=== PATIENT | female | born 1955 | race Caucasian/White ===

== ENCOUNTER 2016-09-22 20:23 | Emergency (ER) | payer BC ==
[2016-09-22] MEDS ORDERED: Sodium Chloride 0.9% 1000 ML 1,000 ML ONE (20:33)
[2016-09-22] MEDS ORDERED: Adenocard IV 6 MG/2 ML IV ONE ×2 (20:33→21:51)
[2016-09-22] MEDS ORDERED: Cardizem IV 50 MG/10 ML IV ONE (20:43)
[2016-09-22] MEDS ORDERED: BABY ASPIRIN 81 MG CHEW PO ONE (20:46)
[2016-09-22] MEDS ORDERED: CARDIZEM DRIP 100 MG/100 ML D5W 100 ML IV ONE (20:46)
[2016-09-22 20:51] LABS: BASOPHIL % 0.5 % (0.0-0.4); Eosinophil % 2.3 % (0.00-5.0); Granulocytes % 42.1 % (36.0-66.0); Lymphocytes % 46.1 % (24.0-44.0); Mean Cell Volume 85.4 fl (78-100); Mean Corpuscular Hemoglobin 29.2 pg (26-32); Mean Platelet Volume 11.6 fl (6-9.5); Platelet Count 221 K/mm3 (150-450); Red Blood Count 5.06 M/mm3 (4.1-5.4); Red Cell Distribution Width 13.1 % (11.5-14.0)
--- NOTE | 2016-09-22 20:54 | ERPHSYRPT ---
- History of Present Illness Time Seen by Provider: 09/22/16 20:48 Historian: patient Exam Limitations: no limitations Physician History: This is a 61-year-old white female with history of high blood pressure hyperlipidemia She arrives with complaint of feeling of fluttering in her chest associated with shortness of breath she denies any chest pain symptoms for one hour. Patient arrives with rapid heart rate she appears to be quite calm and does not appear to be in acute distress. She denies any nausea no vomiting she states she has not had a fever. Past medical history includes high blood pressure, hypercholesterolemia. Past surgery includes hysterectomy and . Social history he denies tobacco alcohol or illicit drug use. Timing/Duration: today (one hour prior to arrival) Activities at Onset: none Quality: other (feels a fluttering in her chest) Location: substernal Chest Pain Radiation: no radiation Severity of Pain-Max: mild Severity of Pain-Current: none Modifying Factors: Improves With: nothing. Worsens With: antacids, breathing, coughing, defecating, eating, exertion, lying down, morphine, movement, nitroglycerin, oxygen, palpation, rest, aspirin, sitting up, change in position Associated Symptoms: palpitations, shortness of breath, No nausea, No vomiting, No heartburn, No abdominal pain, No cough, No hurts to breathe, No diaphoresis, No chills, No fever, No fatigue, No weakness, No swelling/lump in chest, No syncope, No rash, No headache, No dizziness, No edema, No back pain Prior Chest Pain/Cardiac Workup: no prior chest pain Nitro Today/Relief: no nitro taken today Aspirin Treatment Today: 81 mg x 4, provided by ED Allergies/Adverse Reactions: No Known Drug Allergies Allergy (Unverified 09/22/16 20:34) - Review of Systems Constitutional: No Fever, No Chills Eyes: No Symptoms Ears, Nose, & Throat: No Symptoms Respiratory: Dyspnea, No Cough, No Cyanosis, No Dyspnea on Exertion (MILES), No Stridor, No Wheezing Cardiac: Palpitations, Other (fluttering in chest for one hour) Abdominal/Gastrointestinal: No Abdominal Pain, No Nausea, No Vomiting, No Diarrhea Genitourinary Symptoms: No Dysuria Musculoskeletal: No Back Pain, No Neck Pain Skin: No Rash Neurological: No Dizziness, No Focal Weakness, No Sensory Changes Psychological: No Symptoms Endocrine: No Symptoms All Other Systems: Reviewed and Negative - Past Medical History Cardiac History: High Cholesterol, Hypertension - Past Surgical History Female Surgical History: Hysterectomy, Section - Social History Smoking Status: Never smoker Alcohol Use: None Drug Use: none - Nursing Vital Signs Temperature: 98.2 F Temperature Source: Oral Pulse Rate: 153 Respiratory Rate: 16 Pain Intensity: 0 - Physical Exam General Appearance: no apparent distress, alert Eye Exam: PERRL/EOMI, eyes nml inspection Ears, Nose, Throat Exam: normal ENT inspection, moist mucous membranes Neck Exam: normal inspection, non-tender, supple, full range of motion Respiratory Exam: normal breath sounds, lungs clear, No respiratory distress Cardiovascular Exam: normal peripheral pulses, tachycardia, other (heart tachycardic, peripheral pulses intact) Gastrointestinal/Abdomen Exam: soft, No tenderness, No mass Back Exam: normal inspection, No CVA tenderness, No vertebral tenderness Extremity Exam: normal inspection, normal range of motion Neurologic Exam: alert (BS thank you), oriented x 3, cooperative, normal mood/ affect, sensation nml, No motor deficits Skin Exam: normal color, warm, dry SpO2 Interpretation: normal (98%) SpO2: 98 Oxygen Delivery: Nasal Cannula - Course Nursing assessment & vital signs reviewed: Yes EKG Interpreted by Me: RATE (157), A-fib, NORMAL AXIS, Other (EKG atrial fibrillation rapid ventricular rate [address] or T wave changes noted) - Radiology Exams Chest X-ray Interpretation: Interpreted by me (no acute disease process noted), Negative, No Pneumonia, No Pneumothorax Ordered Tests: Active Orders 24 hr Category Date Time Status Accounts Payable Clerk STAT Care 09/22/16 20:46 Active EKG-ER Only STAT Care 09/22/16 20:46 Active IV Insertion STAT Care 09/22/16 20:46 Active Oxygen-ED Only NASAL CANNULA 2 lpm Care 09/22/16 20:46 Active CHEST 1 VIEW (PORTABLE) Stat Exams 09/22/16 20:47 Taken CBC W DIFF Stat Lab 09/22/16 20:30 Completed CMP Stat Lab 09/22/16 20:30 Completed TROPONIN Q3H Lab 09/22/16 21:00 Completed TROPONIN Q3H Lab 09/23/16 00:00 Ordered TROPONIN Q3H Lab 09/23/16 03:00 Ordered TROPONIN Q3H Lab 09/23/16 06:00 Ordered TROPONIN Q3H Lab 09/23/16 09:00 Ordered Medication Summary Generic Name Dose Route Start Last Admin Trade Name Violette PRN Reason Stop Dose Admin Sodium Chloride 1,000 mls @ 100 mls/hr 09/22/16 21:00 09/22/16 21:10 Sodium Chloride 0.9% 1000 Ml IV 10/22/16 20:59 100 mls/hr .Q10H VIKA Administration Discontinued Medications Generic Name Dose Route Start Last Admin Trade Name Violette PRN Reason Stop Dose Admin Adenosine Confirm 09/22/16 20:33 Adenocard Iv 6 Mg/2 Ml Administered 09/22/16 20:34 Dose 6 mg IV .STK-MED ONE Adenosine Confirm 09/22/16 21:51 Adenocard Iv 6 Mg/2 Ml Administered 09/22/16 21:52 Dose 12 mg IV .STK-MED ONE Aspirin 324 mg 09/22/16 20:46 09/22/16 21:11 Baby Aspirin 81 Mg Chew PO 09/22/16 20:47 324 mg STAT ONE Administration Aspirin Confirm 09/22/16 21:10 Baby Aspirin 81 Mg Chew Administered 09/22/16 21:11 Dose 324 mg .ROUTE .STK-MED ONE Diltiazem HCl Confirm 09/22/16 20:43 Cardizem Iv 50 Mg/10 Ml Administered 09/22/16 20:44 Dose 50 mg IV .STK-MED ONE Sodium Chloride Confirm 09/22/16 20:33 Sodium Chloride 0.9% 1000 Ml Administered 09/22/16 20:34 Dose 1,000 mls @ ud .ROUTE .STK-MED ONE Diltiazem HCl Confirm 09/22/16 20:46 Cardizem Drip 100 Mg/100 Ml D5w Administered 09/22/16 20:47 Dose 100 mls @ ud IV .STK-MED ONE Lab/Rad Data: Laboratory Result Diagrams 09/22/16 20:30 09/22/16 20:30 Laboratory Results 09/22/16 09/22/16 09/22/16 Range/Units 21:00 20:30 20:30 WBC 8.0 (4.0-10.5) K/mm3 RBC 5.06 (4.1-5.4) M/mm3 Hgb 14.8 (12.0-16.0) gm/dl Hct 43.2 (35-47) % MCV 85.4 (78-100) fl MCH 29.2 (26-32) pg MCHC 34.3 (32-36) g/dl RDW 13.1 (11.5-14.0) % Plt Count 221 (150-450) K/mm3 MPV 11.6 H (6-9.5) fl Gran % 42.1 (36.0-66.0) % Lymphocytes % 46.1 H (24.0-44.0) % Monocytes % 9.0 (0.0-12.0) % Eosinophils % 2.3 (0.00-5.0) % Basophils % 0.5 (0.0-0.4) % Basophils # 0.04 (0-0.4) Sodium 140 (136-145) mEq/L Potassium 3.2 L (3.5-5.1) mEq/L Chloride 101 (98-107) mEq/L Carbon Dioxide 28.7 (21-32) mEq/L Anion Gap 13.5 (5-15) MEQ/L BUN 21 H (9-20) mg/dL Creatinine 0.99 (0.55-1.30) mg/dl Estimated GFR > 60 ML/MIN Glucose 143 H (70-110) MG/DL Calcium 9.9 (8.5-10.1) mg/dL Total Bilirubin 0.3 (0.2-1.0) mg/dL AST 27 (15-37) U/L ALT 29 (12-78) U/L Alkaline Phosphatase 76 (46-116) U/L Troponin I < 0.017 (0.000-0.056) ng/ml Serum Total Protein 8.3 H (6.4-8.2) gm/dL Albumin 4.6 (3.4-5.0) g/dL - Progress Progress: improved Air Movement: fair Progress Note: 09/22/16 20:53 This is a 61-year-old white female who arrives with complaint of fluttering in her chest symptoms for an hour associated with shortness of breath Patient on arrival is noted to have a heart rate of 1 57 bpm she does not appear to be in acute distress she has good peripheral pulses and perfusion his lungs are clear. Patient with a narrow tachycardia patient initially given adenosine 6 mg then 12 mg IV patient with a swelling of the heart rate with a positive approximately 4 seconds after 12 mg IV unfortunately patient returns to Tachycardia after administration of both boluses Therefore patient is given Cardizem 20 mg IV and started on a Cardizem drip patient will be given aspirin Patient's initial EKG supraventricular tachycardia 157 bpm normal axis no acute ST or T wave changes Patient's repeat EKG atrial fibrillation with rapid response 1 38 bpm normal axis no acute ST or T wave changes are noted. I have discussed patient's case will await troponin will administer Cardizem drip and bolus and titrated Cardizem for rate Will plan on discussion with [facility] one call for possible transfer as appropriate. 09/22/16 22:10 Patient's heartbeat is improving on Cardizem drip with Cardizem boluses. Heart rate now around 100-110 blood pressure was stable. Patient's EKG no acute changes troponin within normal limits. Case discussed with Marnie Dougherty who is second cutter for Dr. Gonzalez At [facility] patient will be accepted for transfer to [facility] Dr. Gonzalez as attending - Departure Time of Disposition: 22:12 Departure Disposition: Home, Transfer ([facility], Dr Gonzalez) Clinical Impression: Atrial fibrillation with rapid ventricular response, New onset atrial fibrillation, Palpitations Condition: Fair Critical Care Time: Yes Critical Care Time(excluding separately billable procedures): 30-74 minutes Referrals: MELVI ALFONSO [Primary Care Provider] -
[2016-09-22] MEDS ORDERED: Sodium Chloride 0.9% 1000 ML 1,000 ML IV SCH (21:00)
[2016-09-22] MEDS ORDERED: BABY ASPIRIN 81 MG CHEW ONE (21:10)
[2016-09-22 21:17] LABS: ALBUMIN 4.6 g/dL (3.4-5.0); ALKALINE PHOSPHATASE 76 U/L (46-116); ANION GAP 13.5 MEQ/L (5-15); BILIRUBIN,TOTAL 0.3 mg/dL (0.2-1.0); BLOOD UREA NITROGEN 21 mg/dL (9-20); CHLORIDE 101 mEq/L (98-107); Carbon Dioxide 28.7 mEq/L (21-32); Glucose 143 MG/DL (70-110); Potassium 3.2 mEq/L (3.5-5.1); SGOT/AST 27 U/L (15-37); SGPT/ALT 29 U/L (12-78); SODIUM 140 mEq/L (136-145); Total Protein 8.3 gm/dL (6.4-8.2)
[2016-09-22 22:13] VITALS: O2SAT 98
[2016-09-22 23:09] VITALS: BP 101/50; PULSE 101
--- NOTE | 2016-09-23 08:36 | XRAY ---
Indication: Tachycardia and short of breath. Comparison: None Portable apical lordotic chest slightly under inflated and clear. Heart and mediastinal structures still within normal limits. Bony thorax intact with mild degenerative changes. Impression: Nonacute underinflated chest.
== END 2016-09-22 23:25 | disposition short-term general hospital (02) ==
LOC: ED 20:23
DX: I48.91 Unspecified atrial fibrillation (principal); R00.0 Tachycardia, unspecified; R00.2 Palpitations; I10 Essential (primary) hypertension; E78.5 Hyperlipidemia, unspecified
CPT/HCPCS: 36000; 36415; 71010; 80053; 84484; 85025; 93005; 93041; 96360; 96361; 96365; 96366; 99284; 99285; 99291; J0153

== ENCOUNTER 2018-10-21 08:40 | Emergency (ER) | payer BC ==
[2018-10-21 09:16] LABS: BASOPHIL % 0.2 % (0.0-0.4); Basophil (Absolute #) 0.02 (0-0.4); Eosinophil % 0.2 % (0.00-5.0); Eosinophil (Absolute #) 0.02 (0-0.5); Granulocyte Absolute (ANC) 8.28 (1.4-6.9); Granulocytes % 83.2 % (36.0-66.0); Hematocrit 39.4 % (35-47); Hemoglobin 13.5 gm/dl (12.0-16.0); Lymphocyte (Absolute #) 0.97 (1.0-4.6); Lymphocytes % 9.7 % (24.0-44.0); Mean Cell Volume 87.2 fl (78-100); Mean Corpuscular Hemoglobin 29.9 pg (26-32); Mean Corpuscular Hgb Concent. 34.3 g/dl (32-36); Mean Platelet Volume 10.5 fl (6-9.5); Monocyte (Absolute #) 0.67 (0.0-1.3); Monocytes % 6.7 % (0.0-12.0); Platelet Count 199 K/mm3 (150-450); Red Blood Count 4.52 M/mm3 (4.1-5.4); Red Cell Distribution Width 13.2 % (11.5-14.0)
--- NOTE | 2018-10-21 09:23 | ERPHSYRPT ---
- History of Present Illness Source: patient Exam Limitations: no limitations Patient Subjective Stated Complaint: pt here for runny nose for a couple days and sore throat today, with a low grade fever Triage Nursing Assessment: pt alert, walked in. resp easy, skin w/d/p. no cough , pt took niquil last night Physician History: Pt is a 63 y/o female with past medical history of HTN. She states, has a few days of cough, with yellow-green discharge, and rhinorrhea with same color of discharge. She denies SOB. No F/C/S. No chest discomfort. Some sore throat. No N/V/D or abdominal pain. Timing/Duration: day(s) Cough Quality/Degree: moderate, productive cough, sputum (yellow-green) Possible Cause: no prior episodes Modifying Factors: Improves With: nothing Associated Symptoms: cough, sore throat Allergies/Adverse Reactions: No Known Drug Allergies Allergy (Verified 10/21/18 08:50) Home Medications: Amlodipine Besylate 5 mg [Norvasc 5 mg] 5 mg PO DAILY 09/22/16 [History] Ascorbic Acid [Vitamin C] 1,000 mg PO DAILY 09/22/16 [History] Aspirin 81 mg PO DAILY 09/22/16 [History] Calcium Citrate/Vitamin D3 [Citracal + D Caplet] 1 each PO DAILY 09/22/16 [ History] Fenofibrate Nanocrystallized [Tricor] 48 mg PO DAILY 09/22/16 [History] Niacin 500 mg PO TID 09/22/16 [History] Arrey-3/Dha/Epa/Fish Oil [Arrey 3 500 Softgel] 1 each PO DAILY 09/22/16 [History ] Pravastatin Sodium 40 mg PO DAILY 09/22/16 [History] Triamterene/Hydrochlorothiazid [Triamterene-Hctz 37.5-25 mg Tb] 1 each PO DAILY 09/22/16 [History] Ubidecarenone [Co Q-10] 75 mg PO DAILY 09/22/16 [History] Hx Tetanus, Diphtheria Vaccination/Date Given: Yes Hx Influenza Vaccination/Date Given: Yes Hx Pneumococcal Vaccination/Date Given: No Immunizations Up to Date: Yes - Review of Systems Constitutional: No Fever, No Chills Eyes: No Symptoms Ears, Nose, & Throat: Nose Discharge (yellow-green), Throat Pain Respiratory: No Cough, No Dyspnea Cardiac: No Chest Pain, No Edema, No Syncope Abdominal/Gastrointestinal: No Abdominal Pain, No Nausea, No Vomiting, No Diarrhea Musculoskeletal: No Back Pain, No Neck Pain Neurological: No Dizziness, No Focal Weakness, No Sensory Changes - Past Medical History Pertinent Past Medical History: Yes Cardiac History: High Cholesterol, Hypertension - Past Surgical History Past Surgical History: Yes Female Surgical History: Hysterectomy, Section Other Surgical History: hand surgery - Social History Smoking Status: Never smoker Exposure to second hand smoke: No Alcohol Use: None Drug Use: none Patient Lives Alone: No - Female History Hx Last Menstrual Period: post Hx Now: No - Nursing Vital Signs Nursing Vital Signs: Initial Vital Signs Temperature 98.9 F 10/21/18 08:46 Pulse Rate 87 10/21/18 08:46 Respiratory Rate 16 10/21/18 08:46 Blood Pressure 134/75 10/21/18 08:46 O2 Sat by Pulse Oximetry 97 10/21/18 08:46 Pain Scale Pain Intensity 0 - Physical Exam General Appearance: no apparent distress, alert Eye Exam: PERRL/EOMI, eyes nml inspection Ears, Nose, Throat Exam: normal ENT inspection, TMs normal, pharynx normal, moist mucous membranes Neck Exam: non-tender, lymphadenopathy (sub mandibular) Respiratory Exam: normal breath sounds, lungs clear, No respiratory distress Cardiovascular Exam: regular rate/rhythm, normal heart sounds Gastrointestinal/Abdomen Exam: soft, No tenderness Extremity Exam: normal inspection, normal range of motion Neurologic Exam: alert, oriented x 3, cooperative, normal mood/affect, sensation nml, No motor deficits SpO2: 97 - Course Nursing assessment & vital signs reviewed: Yes Ordered Tests: Active Orders 24 hr Category Date Time Status CBC W DIFF Stat Lab 10/21/18 09:14 Completed CMP Stat Lab 10/21/18 09:14 Completed Lab/Rad Data: Laboratory Result Diagrams 10/21/18 09:14 10/21/18 09:14 Laboratory Results 10/21/18 10/21/18 10/21/18 Range/Units 09:14 09:14 09:14 WBC 10.0 (4.0-10.5) K/mm3 RBC 4.52 (4.1-5.4) M/mm3 Hgb 13.5 (12.0-16.0) gm/dl Hct 39.4 (35-47) % MCV 87.2 (78-100) fl MCH 29.9 (26-32) pg MCHC 34.3 (32-36) g/dl RDW 13.2 (11.5-14.0) % Plt Count 199 (150-450) K/mm3 MPV 10.5 H (6-9.5) fl Gran % 83.2 H (36.0-66.0) % Eos # (Auto) 0.02 (0-0.5) Absolute Lymphs (auto) 0.97 L (1.0-4.6) Absolute Monos (auto) 0.67 (0.0-1.3) Lymphocytes % 9.7 L (24.0-44.0) % Monocytes % 6.7 (0.0-12.0) % Eosinophils % 0.2 (0.00-5.0) % Basophils % 0.2 (0.0-0.4) % Absolute Granulocytes 8.28 H (1.4-6.9) Basophils # 0.02 (0-0.4) Sodium 137 (137-145) mmol/L Potassium 3.3 L (3.5-5.1) mmol/L Chloride 95 L (98-107) mmol/L Carbon Dioxide 31 H (22-30) mmol/L Anion Gap 13.2 (5-15) MEQ/L BUN 18 H (7-17) mg/dL Creatinine 0.70 (0.52-1.04) mg/dL Estimated GFR > 60.0 ML/MIN Glucose 182 H (74-106) mg/dL Calcium 9.5 (8.4-10.2) mg/dL Total Bilirubin 0.90 (0.2-1.3) mg/dL AST 40 H (14-36) U/L ALT 50 H (0-35) U/L Alkaline Phosphatase 89 (38-126) U/L Serum Total Protein 7.9 (6.3-8.2) g/dL Albumin 4.7 (3.5-5.0) g/dL Influenza Type A Ag NEGATIVE (NEGATIVE) Influenza Type B Ag NEGATIVE (NEGATIVE) RSV (PCR) NEGATIVE (Negative) Group A Strep Antibody POSITIVE (NEGATIVE) - Progress Progress: unchanged Air Movement: good Progress Note: 10/21/18 09:23 Pt had lab work done, as well as strep swab and respiratory panel. Pt did have positive Strep swab. No leukocytosis. I will prescribe Amoxicillin for ten days. Pt should f/u with PCP next week. 10/21/18 09:55 Blood Culture(s) Obtained: No Antibiotics given: No Counseled pt/family regarding: need for follow-up, rad results - Departure Time of Disposition: 09:56 Departure Disposition: Home Clinical Impression: Strep pharyngitis Condition: Stable Critical Care Time: No Referrals: MELVI ALFONSO [Primary Care Provider] - Additional Instructions: Finish ABX as ordered. F/U with PCP next week. Prescriptions: Amoxicillin [Amoxil] 875 mg PO BID 10 Days #20 tablet
[2018-10-21 09:28] LABS: ALBUMIN 4.7 g/dL (3.5-5.0); ALKALINE PHOSPHATASE 89 U/L (38-126); ANION GAP 13.2 MEQ/L (5-15); BLOOD UREA NITROGEN 18 mg/dL (7-17); CHLORIDE 95 mmol/L (98-107); Calcium 9.5 mg/dL (8.4-10.2); Carbon Dioxide 31 mmol/L (22-30); Glucose 182 mg/dL (74-106); Potassium 3.3 mmol/L (3.5-5.1); SGOT/AST 40 U/L (14-36); SGPT/ALT 50 U/L (0-35); SODIUM 137 mmol/L (137-145); Total Protein 7.9 g/dL (6.3-8.2)
[2018-10-21 09:40] LABS: Group A Strep POSITIVE (NEGATIVE)
[2018-10-21 09:49] LABS: INFLUENZA A NEGATIVE (NEGATIVE); INFLUENZA B NEGATIVE (NEGATIVE); RESPIRATORY SYNCTIAL VIRUS NEGATIVE (Negative)
[2018-10-21 10:08] VITALS: BP 109/70; PULSE 100; O2SAT 96
== END 2018-10-21 10:09 | disposition home or self-care (01) ==
LOC: ED 08:40
DX: J02.0 Streptococcal pharyngitis (principal); I10 Essential (primary) hypertension; Z79.899 Other long term (current) drug therapy
CPT/HCPCS: 36415; 80053; 85025; 87631; 87651; 99283

== ENCOUNTER 2019-12-15 16:53 | Emergency (ER) | payer BC ==
[2019-12-15] MEDS ORDERED: Adacel Vial IM ONE ×2 (17:15→17:16)
[2019-12-15] MEDS ORDERED: BACIGUENT PACKET TP ONE (17:15)
[2019-12-15] MEDS ORDERED: BACIGUENT PACKET ONE (17:16)
--- NOTE | 2019-12-15 17:22 | ERPHSYRPT ---
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, approx 2 cm laceration above the top knuckle Triage Nursing Assessment: Pt brought to the ER by her , 2 cm laceration to her left middle finger, bleeding has stopped, denies pain, vitals wnl, pulses normal, doesn't appear to be in any distress Physician History: [employer] vs L 3rd digit Occurred: just prior to arrival Method of Injury: incised (Electric [employer] vs L 3rd digit) Extremities Pain Location: 3rd finger: left Modifying Factors: Improves With: nothing Associated Symptoms: none Allergies/Adverse Reactions: No Known Drug Allergies Allergy (Verified 12/15/19 17:05) Home Medications: Amlodipine Besylate 5 mg [Norvasc 5 mg] 5 mg PO DAILY 09/22/16 [History] Ascorbic Acid [Vitamin C] 1,000 mg PO DAILY 09/22/16 [History] Aspirin 81 mg PO DAILY 09/22/16 [History] Calcium Citrate/Vitamin D3 [Citracal + D Caplet] 1 each PO DAILY 09/22/16 [ History] Fenofibrate Nanocrystallized [Tricor] 48 mg PO DAILY 09/22/16 [History] Niacin 500 mg PO BID 09/22/16 [History] Pravastatin Sodium 40 mg PO DAILY 09/22/16 [History] Ubidecarenone [Co Q-10] 100 mg PO DAILY 09/22/16 [History] Chlorthalidone 25 mg PO DAILY 12/15/19 [History] carvediloL [Carvedilol] 12.5 mg PO BID 12/15/19 [History] Hx Tetanus, Diphtheria Vaccination/Date Given: Yes Hx Influenza Vaccination/Date Given: Yes Hx Pneumococcal Vaccination/Date Given: No Travel Risk - International Travel Have you traveled outside of the country in past 3 weeks: No Have you or anyone close to you been diagnosed with or: No Do your reside in a community with a known COVID-19 case?: Yes If Yes where:: [place] - Coronavirus Screening Has patient experienced Coronavirus symptoms: No - Review of Systems Constitutional: No Fever, No Chills Eyes: No Symptoms Ears, Nose, & Throat: No Symptoms Respiratory: No Cough, No Dyspnea Cardiac: No Chest Pain, No Edema, No Syncope Abdominal/Gastrointestinal: No Abdominal Pain, No Nausea, No Vomiting, No Diarrhea Genitourinary Symptoms: No Dysuria Musculoskeletal: No Back Pain, No Neck Pain Skin: No Rash Neurological: No Dizziness, No Focal Weakness, No Sensory Changes Psychological: No Symptoms Endocrine: No Symptoms All Other Systems: Reviewed and Negative - Past Medical History Pertinent Past Medical History: Yes Neurological History: No Pertinent History ENT History: No Pertinent History Cardiac History: High Cholesterol, Hypertension Respiratory History: No Pertinent History Endocrine Medical History: No Pertinent History GI Medical History: No Pertinent History History: No Pertinent History Psycho-Social History: No Pertinent History Female Reproductive Disorders: No Pertinent History - Past Surgical History Past Surgical History: Yes Neuro Surgical History: No Pertinent History Cardiac: No Pertinent History Respiratory: No Pertinent History Gastrointestinal: No Pertinent History Female Surgical History: Hysterectomy, Section Other Surgical History: hand surgery - Social History Smoking Status: Never smoker Exposure to second hand smoke: No Alcohol Use: None Drug Use: none Patient Lives Alone: No Significant Family History: no pertinent family hx - Female History Hx Now: No - Nursing Vital Signs Nursing Vital Signs: Initial Vital Signs Temperature 98.1 F 12/15/19 16:57 Pulse Rate 72 12/15/19 16:57 Blood Pressure 143/95 12/15/19 16:57 O2 Sat by Pulse Oximetry 98 12/15/19 16:57 Pain Scale Pain Intensity 0 - Physical Exam General Appearance: no apparent distress Eyes, Ears, Nose, Throat Exam: normal ENT inspection Neck Exam: normal inspection Cardiovascular/Respiratory Exam: chest non-tender, normal breath sounds, regular rate/rhythm Abdominal Exam: non-tender Back Exam: normal inspection Shoulder Exam: normal inspection Elbow/Forearm Exam: normal inspection Wrist Exam: normal inspection Hand Exam: laceration (L dist al 3rd digit 1cm lac/good distal sensation and capillary return) Neuro/Tendon Exam: normal sensation, normal motor functions, normal tendon functions, responds to pain Mental Status Exam: alert, oriented x 3, cooperative Skin Exam: normal color, warm, dry SpO2 Interpretation: normal SpO2: 98 O2 Delivery: Room Air Procedures - Laceration/Wound Repair Left Distal Finger Wound Location: Left (distal 3rd digit) Wound Length (cm): 1 Wound's Depth, Shape: superficial Wound Explored: clean Irrigated: No Hibiclens Prep: Yes Anesthesia: digital block (1% lido wo epi) Wound Repaired With: sutures Suture Size/Type: 4-0 Number of Sutures: 4 Layer Closure?: No Sterile Dressing Applied?: Yes Splint Applied?: No Sling Applied?: No - Course Nursing assessment & vital signs reviewed: Yes Ordered Tests: Medication Summary Discontinued Medications Generic Name Dose Route Start Last Admin Trade Name Freq PRN Reason Stop Dose Admin Bacitracin Zinc 0.9 gm 12/15/19 17:15 Baciguent Packet TP 12/15/19 17:16 STAT ONE Diphtheria/Tetanus/Acell Pertussis 0.5 ml 12/15/19 17:15 Adacel Vial IM 12/15/19 17:16 .ONCE ONE - Progress Progress: improved Progress Note: 12/15/19 17:25 Tdap given in ER - Departure Departure Disposition: Home Clinical Impression: Finger laceration Condition: Stable Critical Care Time: No Referrals: MELVI ALFONSO [Primary Care Provider] - Instructions: Laceration Repair With Stitches (DC) Additional Instructions: Sutures out in 10 days Keep dry for 48 hours, then wash 1-2 times a day with soap/water Watch for signs of infection-redness/pain/pus/temperature greater than 100.5
[2019-12-15 17:31] VITALS: BP 141/74; PULSE 68; O2SAT 96
== END 2019-12-15 17:35 | disposition home or self-care (01) ==
LOC: ED 16:53
DX: S61.213A Laceration without foreign body of left middle finger without damage to nail, initial encounter (principal); W45.8XXA Other foreign body or object entering through skin, initial encounter; Y92.9 Unspecified place or not applicable; Y99.9 Unspecified external cause status
CPT/HCPCS: 12001; 90471; 90715; 99283; A9270-GY

== ENCOUNTER 2021-11-24 01:47 | Emergency (ER) | payer MEDICARE, OTHER ==
[2021-11-24] MEDS ORDERED: Adenocard IV 6 MG/2 ML IV ONE (02:10)
[2021-11-24] MEDS ORDERED: CARDIZEM DRIP 100 MG/100 ML D5W 100 ML IV ONE (02:14)
[2021-11-24] MEDS ORDERED: Sodium Chloride 0.9% 1000 ML 1,000 ML ONE (02:14)
[2021-11-24] MEDS ORDERED: BABY ASPIRIN 81 MG CHEW PO ONE (02:15)
[2021-11-24] MEDS ORDERED: Sodium Chloride 0.9% 1000 ML 1,000 ML IV SCH (02:15)
[2021-11-24] MEDS ORDERED: Cardizem IV 50 MG/10 ML IV ONE (02:17)
[2021-11-24] MEDS ORDERED: CARDIZEM DRIP 100 MG/100 ML D5W 100 ML IV PRN (02:17)
--- NOTE | 2021-11-24 02:21 | ERPHSYRPT ---
- History of Present Illness Time Seen by Provider: 11/24/21 02:15 Historian: patient Exam Limitations: no limitations Physician History: 66 years old female with history of hypertension, hyperlipidemia, paroxysmal atrial fibrillation not anticoagulated presented to the ER with sudden onset palpitations waking her up from sleep around 1 AM. Continuous without any sign ificant aggravating or relieving factors, feel dizzy and lightheaded without any chest pain/shortness of breath. Denies fever or chills. Timing/Duration: hour(s) (1), sudden Activities at Onset: sleep Severity of Pain-Max: none Severity of Pain-Current: none Associated Symptoms: palpitations Prior Chest Pain/Cardiac Workup: no prior chest pain Nitro Today/Relief: no nitro taken today Aspirin Treatment Today: 81 mg x 1 Allergies/Adverse Reactions: adhesive tape Allergy (Mild, Verified 11/24/21 02:23) Rash Home Medications: Amlodipine Besylate 5 mg [Norvasc 5 mg] 5 mg PO QHS 09/22/16 [History] Ascorbic Acid [Vitamin C] 1,000 mg PO BID 09/22/16 [History] Aspirin 81 mg PO QHS 09/22/16 [History] Calcium Citrate/Vitamin D3 [Citracal + D Caplet] 1 tab PO DAILY 09/22/16 [History] Niacin 500 mg PO BID 09/22/16 [History] Pravastatin Sodium 40 mg PO QHS 09/22/16 [History] Ubidecarenone [Co Q-10] 100 mg PO DAILY 09/22/16 [History] Chlorthalidone 12.5 mg PO QHS 12/15/19 [History] carvediloL [Carvedilol] 12.5 mg PO QAM 12/15/19 [History] Carvedilol [Coreg] 25 mg PO QHS 11/24/21 [History] Cyanocobalamin (Vitamin B-12) [Vitamin B-12] 1,000 mcg PO DAILY 11/24/21 [History] Krill/Om3/Dha/Epa/Om6/Lip/Astx [Krill Oil 1,500 mg Softgel] 1,500 mg PO BID 11/24/21 [History] Multivit-Min/FA/Lycopen/Lutein [Centrum Silver Tablet] 1 tab PO DAILY 11/24/21 [History] Potassium Chloride [K-Tab ER] 10 meq PO BID 11/24/21 [History] Hx Tetanus, Diphtheria Vaccination/Date Given: Yes Hx Influenza Vaccination/Date Given: Yes Hx Pneumococcal Vaccination/Date Given: No - Review of Systems Constitutional: No Symptoms Eyes: No Symptoms Ears, Nose, & Throat: No Symptoms Respiratory: No Symptoms Cardiac: Palpitations Abdominal/Gastrointestinal: No Symptoms Genitourinary Symptoms: No Symptoms Musculoskeletal: No Symptoms Skin: No Symptoms Neurological: Dizziness Psychological: No Symptoms Endocrine: No Symptoms Hematologic/Lymphatic: No Symptoms Immunological/Allergic: No Symptoms - Past Medical History Pertinent Past Medical History: Yes Neurological History: No Pertinent History ENT History: No Pertinent History Cardiac History: High Cholesterol, Hypertension Respiratory History: No Pertinent History Endocrine Medical History: No Pertinent History GI Medical History: No Pertinent History History: No Pertinent History Psycho-Social History: No Pertinent History Female Reproductive Disorders: No Pertinent History - Past Surgical History Past Surgical History: Yes Neuro Surgical History: No Pertinent History Cardiac: No Pertinent History Respiratory: No Pertinent History Gastrointestinal: No Pertinent History Female Surgical History: Hysterectomy, Section Other Surgical History: hand surgery - Social History Smoking Status: Never smoker Exposure to second hand smoke: No Alcohol Use: None Drug Use: none Patient Lives Alone: No Significant Family History: no pertinent family hx - Nursing Vital Signs Nursing Vital Signs: Initial Vital Signs Temperature 98.9 F 11/24/21 01:58 Pulse Rate 149 H 11/24/21 01:58 Respiratory Rate 20 11/24/21 01:58 Blood Pressure 140/95 11/24/21 01:58 O2 Sat by Pulse Oximetry 96 11/24/21 01:58 Pain Scale Pain Intensity 0 - Physical Exam General Appearance: no apparent distress, alert Eye Exam: PERRL/EOMI, eyes nml inspection Ears, Nose, Throat Exam: normal ENT inspection, pharynx normal Neck Exam: normal inspection, supple, full range of motion Respiratory Exam: normal breath sounds, lungs clear Cardiovascular Exam: tachycardia, irregular Gastrointestinal/Abdomen Exam: soft, normal bowel sounds, No tenderness Back Exam: normal inspection, normal range of motion Extremity Exam: normal inspection, normal range of motion Neurologic Exam: alert, oriented x 3, cooperative Skin Exam: normal color SpO2 Interpretation: normal SpO2: 96 O2 Delivery: Room Air - Course EKG Interpreted by Me: RATE (138), A-fib, NORMAL AXIS, NORMAL INTERVALS, Non- specific ST Changes, Other (LVH, second EKG time 5:53 AM. Rate 60 rhythm sinus, PVCs, LVH. T wave inversion diffuse leads, no ST elevation) Ordered Tests: Active Orders 24 hr Category Date Time Status Go Go Dancer STAT Care 11/24/21 02:16 Active EKG-ER Only STAT Care 11/24/21 02:15 Active IV Insertion STAT Care 11/24/21 02:15 Active Oxygen-ED Only Nasal Cannula 2 lpm Care 11/24/21 02:15 Active CHEST 1 VIEW (PORTABLE) Stat Exams 11/24/21 02:16 Taken CBC W DIFF Stat Lab 11/24/21 02:28 Completed CMP Stat Lab 11/24/21 02:28 Completed NT PRO BNP Stat Lab 11/24/21 02:28 Completed PROTIME WITH INR Stat Lab 11/24/21 02:28 Completed PTT Stat Lab 11/24/21 02:28 Completed TROPONIN Q3H Lab 11/24/21 02:28 Completed TROPONIN Q3H Lab 11/24/21 05:22 Received TROPONIN Q3H Lab 11/24/21 08:30 Ordered TROPONIN Q3H Lab 11/24/21 11:30 Ordered TROPONIN Q3H Lab 11/24/21 14:30 Ordered Medication Summary Generic Name Dose Route Start Last Admin Trade Name Freq PRN Reason Stop Dose Admin Sodium Chloride 1,000 mls @ 100 mls/hr 11/24/21 02:15 11/24/21 02:54 Sodium Chloride 0.9% 1000 Ml IV 12/24/21 02:14 100 mls/hr .Q10H VIKA Administration Diltiazem HCl 100 mls @ 5 mls/hr 11/24/21 02:17 11/24/21 05:24 Cardizem Drip 100 Mg/100 Ml D5w IV 12/24/21 02:16 0 mg/hr .Q20H PRN 0 mls/hr HEART RATE/ A-FIB Titration Protocol 5 MG/HR Discontinued Medications Generic Name Dose Route Start Last Admin Trade Name Freq PRN Reason Stop Dose Admin Adenosine Confirm 11/24/21 02:10 Adenosine 6 Mg/2 Ml Vial Administered 11/24/21 02:11 Dose 6 mg IV .STK-MED ONE Aspirin 243 mg 11/24/21 02:15 11/24/21 02:51 Aspirin 81 Mg Tab.Chew PO 11/24/21 02:16 243 mg STAT ONE Administration Diltiazem HCl 10 mg 11/24/21 02:17 11/24/21 02:30 Diltiazem Hcl Iv 5 Mg/Ml Vial IV 11/24/21 02:18 10 mg STAT ONE Administration Sodium Chloride Confirm 11/24/21 02:14 Sodium Chloride 0.9% 1000 Ml Administered 11/24/21 02:15 Dose 1,000 mls @ ud .ROUTE .STK-MED ONE Diltiazem HCl Confirm 11/24/21 02:14 Cardizem Drip 100 Mg/100 Ml D5w Administered 11/24/21 02:15 Dose 100 mls @ ud IV .STK-MED ONE Lab/Rad Data: Laboratory Result Diagrams 11/24/21 02:28 11/24/21 02:28 Laboratory Results 11/24/21 11/24/21 11/24/21 Range/Units 02:28 02:28 02:28 WBC (4.0-10.5) K/mm3 RBC (4.1-5.4) M/mm3 Hgb (12.0-16.0) gm/dl Hct (35-47) % MCV (78-100) fl MCH (26-32) pg MCHC (32-36) g/dl RDW (11.5-14.0) % Plt Count (150-450) K/mm3 MPV (7.5-11.0) fl Gran % (36.0-66.0) % Eos # (Auto) (0-0.5) Absolute Lymphs (auto) (1.0-4.6) Absolute Monos (auto) (0.0-1.3) Lymphocytes % (24.0-44.0) % Monocytes % (0.0-12.0) % Eosinophils % (0.00-5.0) % Basophils % (0.0-0.4) % Absolute Granulocytes (1.4-6.9) Basophils # (0-0.4) PT 10.3 (9.4-12.5) SECONDS INR 0.87 (0.8-3.0) APTT 32.2 (25.1-36.5) SECONDS Sodium 139 (137-145) mmol/L Potassium 3.6 (3.5-5.1) mmol/L Chloride 101 (98-107) mmol/L Carbon Dioxide 28 (22-30) mmol/L Anion Gap 14.0 (5-15) MEQ/L BUN 16 (7-17) mg/dL Creatinine 0.62 (0.52-1.04) mg/dL Estimated GFR > 60.0 ML/MIN Glucose 129 H (74-106) mg/dL Calcium 9.7 (8.4-10.2) mg/dL Total Bilirubin 0.60 (0.2-1.3) mg/dL AST 34 (14-36) U/L ALT 29 (0-35) U/L Alkaline Phosphatase 75 (38-126) U/L Troponin I < 0.012 (0.000-0.034) ng/mL NT-Pro-B Natriuret Pep 47.8 (0-900) pg/mL Serum Total Protein 7.0 (6.3-8.2) g/dL Albumin 4.5 (3.5-5.0) g/dL 11/24/21 Range/Units 02:28 WBC 5.7 (4.0-10.5) K/mm3 RBC 5.12 (4.1-5.4) M/mm3 Hgb 15.2 (12.0-16.0) gm/dl Hct 44.6 (35-47) % MCV 87.1 (78-100) fl MCH 29.7 (26-32) pg MCHC 34.1 (32-36) g/dl RDW 13.3 (11.5-14.0) % Plt Count 198 (150-450) K/mm3 MPV 11.5 H (7.5-11.0) fl Gran % 47.9 (36.0-66.0) % Eos # (Auto) 0.15 (0-0.5) Absolute Lymphs (auto) 2.17 (1.0-4.6) Absolute Monos (auto) 0.63 (0.0-1.3) Lymphocytes % 38.0 (24.0-44.0) % Monocytes % 11.0 (0.0-12.0) % Eosinophils % 2.6 (0.00-5.0) % Basophils % 0.5 (0.0-0.4) % Absolute Granulocytes 2.73 (1.4-6.9) Basophils # 0.03 (0-0.4) PT (9.4-12.5) SECONDS INR (0.8-3.0) APTT (25.1-36.5) SECONDS Sodium (137-145) mmol/L Potassium (3.5-5.1) mmol/L Chloride (98-107) mmol/L Carbon Dioxide (22-30) mmol/L Anion Gap (5-15) MEQ/L BUN (7-17) mg/dL Creatinine (0.52-1.04) mg/dL Estimated GFR ML/MIN Glucose (74-106) mg/dL Calcium (8.4-10.2) mg/dL Total Bilirubin (0.2-1.3) mg/dL AST (14-36) U/L ALT (0-35) U/L Alkaline Phosphatase (38-126) U/L Troponin I (0.000-0.034) ng/mL NT-Pro-B Natriuret Pep (0-900) pg/mL Serum Total Protein (6.3-8.2) g/dL Albumin (3.5-5.0) g/dL - Progress Progress: improved Air Movement: good Progress Note: 11/24/21 05:59 66 years old is evaluated for palpitations. Patient was in A. fib with RVR, sta rted on Cardizem drip and patient converted to normal sinus with rate in 60s and 50s. Does not have any chest pain. Chest x-ray did not show any acute infiltrative process. Negative troponins. Grossly unremarkable chemistries. Patient is feeling back to her baseline. She is offered observation admission but she wants to go home and will follow up with her diagnostic tech. She is off of Cardizem drip for almost an hour and maintain normal sinus rhythm. Discussed with patient about signs symptoms of worsening needing return to ER which she seems understanding. Stable for discharge. Blood Culture(s) Obtained: No Antibiotics given: No Counseled pt/family regarding: lab results, diagnosis, need for follow-up, jacquie charles - Departure Departure Disposition: Home Clinical Impression: Atrial fibrillation with rapid ventricular response Condition: Stable Critical Care Time: Yes Critical Care Time(excluding separately billable procedures): Critical 30-74 mins Referrals: MELVI ALFONSO [Primary Care Provider] - Follow up/PCP as directed (1-2 days for reevaluation) HELENA LERNER MD [CONSULTING PHYSICIAN] - Follow up/PCP as directed (Call today for reevaluation in the next couple of days.) Instructions: Palpitations (DC), Atrial Fibrillation (DC) Additional Instructions: Continue with your current medications. Follow-up with your diagnostic tech for reevaluation. Return to ER if again having palpitations tightness, pressure/pain/difficulty breathing etc.
[2021-11-24 02:32] LABS: Absolute Neutrophil Ct (ANC) 2.73 (1.4-6.9); Basophil (Absolute #) 0.03 (0-0.4); Eosinophil % 2.6 % (0.00-5.0); Eosinophil (Absolute #) 0.15 (0-0.5); Hematocrit 44.6 % (35-47); Hemoglobin 15.2 gm/dl (12.0-16.0); Lymphocyte (Absolute #) 2.17 (1.0-4.6); Mean Cell Volume 87.1 fl (78-100); Mean Corpuscular Hemoglobin 29.7 pg (26-32); Mean Corpuscular Hgb Concent. 34.1 g/dl (32-36); Mean Platelet Volume 11.5 fl (7.5-11.0); Monocyte (Absolute #) 0.63 (0.0-1.3); Neutrophil % 47.9 % (36.0-66.0); Platelet Count 198 K/mm3 (150-450); Red Blood Count 5.12 M/mm3 (4.1-5.4); Red Cell Distribution Width 13.3 % (11.5-14.0); White Blood Count 5.7 K/mm3 (4.0-10.5)
[2021-11-24 02:44] LABS: INR 0.87 (0.8-3.0); PROTIME 10.3 SECONDS (9.4-12.5)
[2021-11-24 02:46] LABS: PTT 32.2 SECONDS (25.1-36.5)
[2021-11-24 02:56] LABS: ALBUMIN 4.5 g/dL (3.5-5.0); ALKALINE PHOSPHATASE 75 U/L (38-126); BLOOD UREA NITROGEN 16 mg/dL (7-17); CHLORIDE 101 mmol/L (98-107); Calcium 9.7 mg/dL (8.4-10.2); Carbon Dioxide 28 mmol/L (22-30); Creatinine 1 0.62 mg/dL (0.52-1.04); EST GLOMERULAR FILTRATION RATE > 60.0 ML/MIN; Glucose 129 mg/dL (74-106); NT PRO BNP 47.8 pg/mL (0-900); Potassium 3.6 mmol/L (3.5-5.1); SGOT/AST 34 U/L (14-36); SGPT/ALT 29 U/L (0-35); SODIUM 139 mmol/L (137-145)
[2021-11-24 06:01] LABS: INFLUENZA A NEGATIVE (NEGATIVE); INFLUENZA B NEGATIVE (NEGATIVE); RESPIRATORY SYNCTIAL VIRUS NEGATIVE (Negative); SARS-CoV-2 Xpert Express NEGATIVE (NEGATIVE)
[2021-11-24 06:28] VITALS: BP 115/72; PULSE 60; O2SAT 97
--- NOTE | 2021-11-24 09:01 | XRAY ---
Indication: Palpitations. Comparison: September 22, 2016. Portable apical lordotic chest remains clear. Heart not enlarged. Bony thorax intact again with mild degenerative changes. No new/acute findings. Comment: Preliminary interpretation made by [facility]. No critical discrepancy.
== END 2021-11-24 06:43 | disposition home or self-care (01) ==
LOC: ED 01:47
DX: I48.20 Chronic atrial fibrillation, unspecified (principal); I10 Essential (primary) hypertension; E78.5 Hyperlipidemia, unspecified; Z79.899 Other long term (current) drug therapy
CPT/HCPCS: 0241U; 36000; 36415; 71045; 80053; 83880; 84484; 85025; 85610; 85730; 93005; 93041; 96365; 96366; 96374; 99285; 99291; J0153; A9270-GY

== ENCOUNTER 2022-09-09 12:27 | Emergency (ER) | payer MEDICARE, OTHER ==
--- NOTE | 2022-09-09 12:53 | ERPHSYRPT ---
- History of Present Illness Time Seen by Provider: 09/09/22 12:40 Source: patient Exam Limitations: no limitations Patient Subjective Stated Complaint: C/O irregular heart rate that started around 0900 today Triage Nursing Assessment: Patient ambulated back to ER without any difficulties. No SOB. Denies pain. Alert and oriented. BASHIR WNL. No edema noted. Skin tone normal. Physician History: Patient is a 67-year-old female with history of A. fib presents to our ED for a brief episode of heart palpitations. Palpitations were not associated with pain or near syncope. Patient called her wool hanker Dr. Charlie Prieto who advised her to take an additional dose of metoprolol. However patient took it upon herself to come to our ED for evaluation. Upon arrival she is asymptomatic. No chest pain no shortness of breath no nausea vomiting or diaphoresis. Patient has no complaints other than she wants to be checked out for this brief episode of heart palpitations. Patient takes an aspirin daily. Otherwise not on blood thinners. Patient's episode of heart palpitations occurred at approximately 9 AM this morning. Repeat episodes have not occurred. Portions of this note were created with voice recognition technology. There may be grammatical, spelling, punctuation or sound alike errors Timing/Duration: today Severity: mild Modifying Factors: Improves With: nothing Associated Symptoms: denies symptoms Allergies/Adverse Reactions: adhesive tape Allergy (Mild, Verified 09/09/22 12:33) Rash Home Medications: Amlodipine Besylate 5 mg [Norvasc 5 mg] 5 mg PO QHS 09/22/16 [History] Aspirin 81 mg PO QHS 09/22/16 [History] Ascorbic Acid 500 mg [Vitamin C 500 MG] 1,000 mg PO BID 09/09/22 [History] Calcium Carb,Cit/D3/Phytostrol [Citracal-D3 Plus Heart [facility] Tb] 1 tab PO DAILY 09/09/22 [History] Chlorthalidone 12.5 mg PO DAILY 09/09/22 [History] Cholecalciferol (Vitamin D3) [Vitamin D3] 1 cap PO DAILY 09/09/22 [History] Cyanocobalamin (Vitamin B-12) [Vitamin B12] 1,000 mg PO DAILY 09/09/22 [History] Krill/Om-3/Dha/Epa/Phospho/Ast [Krill Oil 1,000 mg Softgel] 1,085 mg PO BID 09/09/22 [History] Metoprolol Tartrate [Lopressor] 1 tab PO BID 09/09/22 [History] Multivit-Min/Iron/Folic/Lutein [Centrum Silver Women Tablet] 1 tab PO DAILY [History] Niacin (Inositol Niacinate) [Niacin 500 mg Capsule] 1 cap PO BID 09/09/22 [History] Ubidecarenone [Co Q-10] 1 tab PO DAILY 09/09/22 [History] Hx Tetanus, Diphtheria Vaccination/Date Given: Yes Hx Influenza Vaccination/Date Given: Yes Hx Pneumococcal Vaccination/Date Given: Yes Immunizations Up to Date: Yes Travel Risk - International Travel Have you traveled outside of the country in past 3 weeks: No - Coronavirus Screening Are you exhibiting any of the following symptoms?: No Close contact with a COVID-19 positive Pt in past 14-21 Days: No - Vaccine Status Have you recieved a Covid-19 vaccination: No - Review of Systems Constitutional: No Symptoms, No Fever, No Chills Eyes: No Symptoms Ears, Nose, & Throat: No Symptoms Respiratory: No Symptoms, No Cough, No Dyspnea Cardiac: No Symptoms, No Chest Pain, No Edema, No Syncope Abdominal/Gastrointestinal: No Symptoms, No Abdominal Pain, No Nausea, No Vomiting, No Diarrhea Genitourinary Symptoms: No Symptoms, No Dysuria Musculoskeletal: No Symptoms, No Back Pain, No Neck Pain Skin: No Symptoms, No Rash Neurological: No Symptoms, No Dizziness, No Focal Weakness, No Sensory Changes Psychological: No Symptoms Endocrine: No Symptoms Hematologic/Lymphatic: No Symptoms Immunological/Allergic: No Symptoms All Other Systems: Reviewed and Negative - Past Medical History Pertinent Past Medical History: Yes Neurological History: No Pertinent History ENT History: No Pertinent History Cardiac History: High Cholesterol, Hypertension, Other Respiratory History: No Pertinent History Endocrine Medical History: No Pertinent History Musculoskeletal History: No Pertinent History GI Medical History: No Pertinent History History: No Pertinent History Psycho-Social History: No Pertinent History Female Reproductive Disorders: No Pertinent History Other Medical History: skin cancer, history of a-fib episodes (wool hanker: Dr. Tali Prieto) - Past Surgical History Past Surgical History: Yes Neuro Surgical History: No Pertinent History Cardiac: Cardiac Catheterization Respiratory: No Pertinent History Gastrointestinal: No Pertinent History Female Surgical History: Hysterectomy, Section Other Surgical History: hand surgery, cyst removal from fingers - Social History Smoking Status: Never smoker Exposure to second hand smoke: No Alcohol Use: None Drug Use: none Patient Lives Alone: No () Significant Family History: no pertinent family hx - Nursing Vital Signs Nursing Vital Signs: Initial Vital Signs Temperature 98.8 F 09/09/22 12:34 Pulse Rate 65 09/09/22 12:34 Respiratory Rate 24 09/09/22 12:34 Blood Pressure 134/64 09/09/22 12:34 O2 Sat by Pulse Oximetry 98 09/09/22 12:34 Pain Scale Pain Intensity 0 - Physical Exam General Appearance: no apparent distress, alert Eye Exam: PERRL/EOMI, eyes nml inspection Ears, Nose, Throat Exam: normal ENT inspection, TMs normal, pharynx normal, moist mucous membranes Neck Exam: normal inspection, non-tender, supple, full range of motion Respiratory Exam: normal breath sounds, lungs clear, No respiratory distress Cardiovascular Exam: regular rate/rhythm, normal heart sounds, normal peripheral pulses Gastrointestinal/Abdomen Exam: soft, normal bowel sounds, No tenderness, No mass Back Exam: normal inspection, normal range of motion, No CVA tenderness, No vertebral tenderness Extremity Exam: normal inspection, normal range of motion, pelvis stable Neurologic Exam: alert, oriented x 3, cooperative, normal mood/affect, nml cerebellar function, nml station & gait, sensation nml, No motor deficits Skin Exam: normal color, warm, dry, No rash Lymphatic Exam: No adenopathy SpO2 Interpretation: normal SpO2: 98 O2 Delivery: Room Air - Course Nursing assessment & vital signs reviewed: Yes EKG Interpreted by Me: RATE (64), Sinus Rhythm (EKG similar to EKG performed on November 24, 2021), NORMAL AXIS, NORMAL INTERVALS Ordered Tests: Active Orders 24 hr Category Date Time Status Claims Supervisor STAT Care 09/09/22 12:49 Completed EKG-ER Only STAT Care 09/09/22 12:47 Completed IV Insertion STAT Care 09/09/22 12:47 Completed Pulse Oximetry (ED) STAT Care 09/09/22 12:47 Completed CBC W DIFF Stat Lab 09/09/22 12:45 Completed CMP Stat Lab 09/09/22 12:45 Completed NT PRO BNP Stat Lab 09/09/22 12:45 Completed PROTIME WITH INR Stat Lab 09/09/22 Completed PTT Stat Lab 09/09/22 Completed TROPONIN Q4H Lab 09/09/22 12:45 Completed TROPONIN Q4H Lab 09/09/22 16:50 Completed Medication Summary Discontinued Medications Generic Name Dose Route Start Last Admin Trade Name Freq PRN Reason Stop Dose Admin Aspirin 324 mg 09/09/22 17:43 09/09/22 18:13 Aspirin 81 Mg Tab.Chew PO 09/09/22 17:44 324 mg STAT ONE Administration Heparin Sodium (Beef Lung) Confirm 09/09/22 18:07 Heparin 5000 Units/0.5 Ml 5,000 Unit/0.5 Ml Syr Administered 09/09/22 18:08 Dose 5,000 unit .ROUTE .STK-MED ONE Heparin Sodium (Beef Lung) 5,000 unit 09/09/22 18:08 09/09/22 18:12 Heparin 5000 Units/0.5 Ml 5,000 Unit/0.5 Ml Syr IV 09/09/22 18:09 5,000 unit STAT ONE Administration Nitroglycerin/Dextrose 250 mls @ 1.5 mls/hr 09/09/22 17:45 Ntg 0.2mg/Ml In D5w Glass IV 10/09/22 17:44 .Q24H PRN CHEST PAIN Protocol 5 MCG/MIN Heparin Sodium/Dextrose Confirm 09/09/22 18:07 Heparin 25,000 Units/D5w: Use Order Set Deena Administered 09/09/22 18:08 Dose 25,000 units in 250 mls @ ud IV .STK-MED ONE Heparin Sodium/Dextrose 25,000 units in 250 mls @ 10 mls/hr 09/09/22 18:30 09/09/22 18:13 Heparin 25,000 Units/D5w: Use Order Set Deena IV 10/09/22 18:29 1,000 units/hr .Q24H VIKA 10 mls/hr Administration Protocol 1,000 UNITS/HR Lab/Rad Data: Laboratory Result Diagrams 09/09/22 12:45 09/09/22 12:45 Laboratory Results 09/09/22 09/09/22 09/09/22 Range/Units Unknown 16:50 12:45 WBC (4.0-10.5) x10^3/uL RBC (4.1-5.4) x10^6/uL Hgb (12.0-16.0) g/dL Hct (35-47) % MCV (78-100) fL MCH (26-32) pg MCHC (32-36) g/dL RDW (11.5-14.0) % Plt Count (150-450) x10^3/uL MPV (7.5-11.0) fL Gran % (36.0-66.0) % Immature Gran % (Auto) (0.00-0.4) % Nucleat RBC Rel Count (0.00-0.1) % Eos # (Auto) (0-0.5) x10^3/uL Immature Gran # (Auto) (0.00-0.03) x10^3u/L Absolute Lymphs (auto) (1.0-4.6) x10^3/uL Absolute Monos (auto) (0.0-1.3) x10^3/uL Absolute Nucleated RBC (0.00-0.01) x10^3u/L Lymphocytes % (24.0-44.0) % Monocytes % (0.0-12.0) % Eosinophils % (0.00-5.0) % Basophils % (0.0-0.4) % Absolute Granulocytes (1.4-6.9) x10^3/uL Basophils # (0-0.4) x10^3/uL PT 10.2 (9.4-12.5) SECONDS INR 0.96 (0.8-3.0) APTT 26.0 (25.1-36.5) SECONDS Sodium (137-145) mmol/L Potassium (3.5-5.1) mmol/L Chloride (98-107) mmol/L Carbon Dioxide (22-30) mmol/L Anion Gap (5-15) MEQ/L BUN (7-17) mg/dL Creatinine (0.52-1.04) mg/dL Estimated GFR ML/MIN Glucose (74-106) mg/dL Calcium (8.4-10.2) mg/dL Total Bilirubin (0.2-1.3) mg/dL AST (14-36) U/L ALT (0-35) U/L Alkaline Phosphatase (38-126) U/L Troponin I 0.069 H* 0.024 (0.000-0.034) ng/mL NT-Pro-B Natriuret Pep (0-900) pg/mL Serum Total Protein (6.3-8.2) g/dL Albumin (3.5-5.0) g/dL 09/09/22 09/09/22 Range/Units 12:45 12:45 WBC 6.8 (4.0-10.5) x10^3/uL RBC 5.47 H (4.1-5.4) x10^6/uL Hgb 15.9 (12.0-16.0) g/dL Hct 47.7 H (35-47) % MCV 87.2 (78-100) fL MCH 29.1 (26-32) pg MCHC 33.3 (32-36) g/dL RDW 12.3 (11.5-14.0) % Plt Count 200 (150-450) x10^3/uL MPV 11.2 H (7.5-11.0) fL Gran % 65.9 (36.0-66.0) % Immature Gran % (Auto) 0.1 (0.00-0.4) % Nucleat RBC Rel Count 0.0 (0.00-0.1) % Eos # (Auto) 0.08 (0-0.5) x10^3/uL Immature Gran # (Auto) 0.01 (0.00-0.03) x10^3u/L Absolute Lymphs (auto) 1.67 (1.0-4.6) x10^3/uL Absolute Monos (auto) 0.50 (0.0-1.3) x10^3/uL Absolute Nucleated RBC 0.00 (0.00-0.01) x10^3u/L Lymphocytes % 24.5 (24.0-44.0) % Monocytes % 7.3 (0.0-12.0) % Eosinophils % 1.2 (0.00-5.0) % Basophils % 1.0 (0.0-0.4) % Absolute Granulocytes 4.48 (1.4-6.9) x10^3/uL Basophils # 0.07 (0-0.4) x10^3/uL PT (9.4-12.5) SECONDS INR (0.8-3.0) APTT (25.1-36.5) SECONDS Sodium 138 (137-145) mmol/L Potassium 3.9 (3.5-5.1) mmol/L Chloride 101 (98-107) mmol/L Carbon Dioxide 30 (22-30) mmol/L Anion Gap 11.3 (5-15) MEQ/L BUN 11 (7-17) mg/dL Creatinine 0.59 (0.52-1.04) mg/dL Estimated GFR > 60.0 ML/MIN Glucose 153 H (74-106) mg/dL Calcium 9.6 (8.4-10.2) mg/dL Total Bilirubin 0.70 (0.2-1.3) mg/dL AST 46 H (14-36) U/L ALT 40 H (0-35) U/L Alkaline Phosphatase 76 (38-126) U/L Troponin I (0.000-0.034) ng/mL NT-Pro-B Natriuret Pep 117 (0-900) pg/mL Serum Total Protein 7.8 (6.3-8.2) g/dL Albumin 4.8 (3.5-5.0) g/dL - Progress Progress: improved Progress Note: Patient is a 67-year-old female presents to our ED for evaluation of a single episode of heart palpitations without any other symptomology. Physical exam nonremarkable. Patient's complaint was acute. History of A. fib may have contributed to the patient's brief episode of heart palpitation. Complexity of patient's complaint was moderate. Test ordered include CBC CMP BNP and troponin. This was troponin was 0.024. Repeat troponin was 0.069. Results of work-up were used for medical decision making. Patient currently on aspirin daily. EKG shows sinus rhythm. No A. fib. In light of increasing troponin Heparin drip was ordered. We added coags on the patient's laboratory work-up. Nitro was initiated. However it was discontinued per Dr. Lemon request. We contacted [facility]. Case discussed with ER physician Dr. Reynolds and Dr. Lemon who accept transfer. Plan of care discussed with patient. She agreed to transfer to [facility] for further evaluation and treatment. Level of EM service provided was high. Complexity of problem addressed was moderate. Amount and complexity of data reviewed and analyzed is moderate. Risks of complication and/or risk of morbidity/mortality of patient management was minimal No critical care time patient serves as an independent historian. Patient remained asymptomatic throughout her stay in our ED. diagnosis is NSTEMI, elevated cardiac troponin Taken troponin was elevated. Case discussed with Dr. Lemon who advised holding off on nitro drip until patient develops chest pain. Dr. Lemon accepts patient to [facility]. We will transfer patient to [facility] for further evaluation and treatment. Plan of care discussed with patient. She agrees to transfer to [facility]. Portions of this note were created with voice recognition technology. There may be grammatical, spelling, punctuation or sound alike errors 09/09/22 18:06 09/09/22 23:00 09/09/22 23:01 Counseled pt/family regarding: lab results, diagnosis, need for follow-up - Departure Departure Disposition: Transfer Clinical Impression: Heart palpitations, NSTEMI (non-ST elevated myocardial infarction), Elevated cardiac troponin Condition: Stable Critical Care Time: No Referrals: MELVI ALFONSO [Primary Care Provider] - Follow up/PCP as directed Additional Instructions: Discharge/Care Plan IGNACIO CARPIO was seen on 09/09/22 in the Emergency Room. The patient was c ounseled regarding Diagnosis,Lab results, Imaging studies, need for follow up and when to return to the Emergency Room. Prescriptions given: Discharge Note I have spoken with the patient and/or caregivers. I have explained the patient's condition, diagnosis and treatment plan based on the information available to me at this time. I have answered the patient's and/or caregiver's questions and addressed any concerns. The patient and/or caregivers have as good understanding of the patient's diagnosis, condition and treatment plan as can be expected at this point. The vital signs have been stable. The patient's condition is stable and appropriate for discharge from the emergency department. The patient will pursue further outpatient evaluation with the primary care physician or other designated or consulting physician as outlined in the discharge instructions. The patient and/or caregivers are agreeable to this plan of care and follow-up instructions have been explained in detail. The patient and/or caregivers have received these instruction. The patient/and or caregivers are aware that any significant change in condition or worsening of symptoms should prompt an immediate return to this or the closest emergency department or call 911.
[2022-09-09 13:11] LABS: Absolute Neutrophil Ct (ANC) 4.48 x10^3/uL (1.4-6.9); Basophil (Absolute #) 0.07 x10^3/uL (0-0.4); Eosinophil % 1.2 % (0.00-5.0); Eosinophil (Absolute #) 0.08 x10^3/uL (0-0.5); Hematocrit 47.7 % (35-47); Hemoglobin 15.9 g/dL (12.0-16.0); IMMATURE GRAN # 0.01 x10^3u/L (0.00-0.03); IMMATURE GRAN % 0.1 % (0.00-0.4); Lymphocyte (Absolute #) 1.67 x10^3/uL (1.0-4.6); Lymphocytes % 24.5 % (24.0-44.0); Mean Cell Volume 87.2 fL (78-100); Mean Corpuscular Hemoglobin 29.1 pg (26-32); Mean Corpuscular Hgb Concent. 33.3 g/dL (32-36); Mean Platelet Volume 11.2 fL (7.5-11.0); Monocytes % 7.3 % (0.0-12.0); Neutrophil % 65.9 % (36.0-66.0); Platelet Count 200 x10^3/uL (150-450); Red Blood Count 5.47 x10^6/uL (4.1-5.4); Red Cell Distribution Width 12.3 % (11.5-14.0); White Blood Count 6.8 x10^3/uL (4.0-10.5)
[2022-09-09 13:27] LABS: ALBUMIN 4.8 g/dL (3.5-5.0); ALKALINE PHOSPHATASE 76 U/L (38-126); ANION GAP 11.3 MEQ/L (5-15); BLOOD UREA NITROGEN 11 mg/dL (7-17); CHLORIDE 101 mmol/L (98-107); Calcium 9.6 mg/dL (8.4-10.2); Carbon Dioxide 30 mmol/L (22-30); Creatinine 1 0.59 mg/dL (0.52-1.04); EST GLOMERULAR FILTRATION RATE > 60.0 ML/MIN; Glucose 153 mg/dL (74-106); NT PRO BNP 117 pg/mL (0-900); Potassium 3.9 mmol/L (3.5-5.1); SGOT/AST 46 U/L (14-36); SGPT/ALT 40 U/L (0-35); SODIUM 138 mmol/L (137-145); Total Protein 7.8 g/dL (6.3-8.2)
[2022-09-09] MEDS ORDERED: BABY ASPIRIN 81 MG CHEW PO ONE (17:43)
[2022-09-09] MEDS ORDERED: Ntg 0.2MG/Ml in D5W GLASS*** 250 ML IV PRN (17:45)
[2022-09-09 17:58] LABS: INR 0.96 (0.8-3.0); PROTIME 10.2 SECONDS (9.4-12.5)
[2022-09-09 18:07] VITALS: O2SAT 98
[2022-09-09] MEDS ORDERED: HEPARIN 5000 UNITS/0.5 ML (HIGH RISK MED) ONE (18:07)
[2022-09-09] MEDS ORDERED: Heparin 25,000 units/D5W: USE ORDER SET PROTO 25,000 UNITS/250 ML BAG IV ONE (18:07)
[2022-09-09] MEDS ORDERED: HEPARIN 5000 UNITS/0.5 ML (HIGH RISK MED) IV ONE (18:08)
[2022-09-09 18:19] VITALS: BP 130/63; PULSE 72
[2022-09-09] MEDS ORDERED: Heparin 25,000 units/D5W: USE ORDER SET PROTO 25,000 UNITS/250 ML BAG IV SCH (18:30)
== END 2022-09-09 18:28 | disposition short-term general hospital (02) ==
LOC: ED 12:27
DX: I21.4 Non-ST elevation (NSTEMI) myocardial infarction (principal); R77.8 Other specified abnormalities of plasma proteins; R00.2 Palpitations; E78.5 Hyperlipidemia, unspecified; I10 Essential (primary) hypertension; Z79.899 Other long term (current) drug therapy; Z28.310 Unvaccinated for COVID-19
CPT/HCPCS: 36000; 36415; 80053; 83880; 84484; 85025; 85610; 85730; 93005; 93041; 94760; 96374; 99285; J1644; A9270-GY

== ENCOUNTER 2022-12-02 05:15 | Emergency (ER) | payer MEDICARE, OTHER ==
--- NOTE | 2022-12-02 05:25 | ERPHSYRPT ---
- History of Present Illness Time Seen by Provider: 12/02/22 05:25 Source: patient Exam Limitations: no limitations Physician History: Patient presents w/ pounding chest palpitations w/ HR in the 130s that progressed to just a flutter after taking an extra 1/2 tablet of her Metoprolol Sxs started around 3am She has a hx of paroxysmal atrial fibrillation On chronic anticoagulation w/ Eliquis 5mg BID And rate control medication w/ Metoprolol Compliant. No side effects. Denies current palpitations, CP, SOB or swelling. 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 Hammad Lerner in [place] Timing/Duration: today (0300), resolved prior to arrival Activities at Onset: none Quality: other (palpitations) Chest Pain Radiation: no radiation Severity of Pain-Max: moderate Severity of Pain-Current: none Modifying Factors: Improves With: other (Metoprolol improved) Nitro Today/Relief: no nitro taken today Aspirin Treatment Today: no aspirin today Associated Symptoms: No nausea, No vomiting, No abdominal pain, No shortness of breath, No diaphoresis, No cough, No chest pain, No fever, No headaches Allergies/Adverse Reactions: adhesive tape Allergy (Mild, Verified 12/02/22 05:26) Rash Home Medications: Amlodipine Besylate 5 mg [Norvasc 5 mg] 5 mg PO QHS 09/22/16 [History] Ascorbic Acid 500 mg [Vitamin C 500 MG] 1,000 mg PO BID 09/09/22 [History] Calcium Carb,Cit/D3/Phytostrol [Citracal-D3 Plus [facility] Tb] 1 tab PO DAILY 09/09/22 [History] Chlorthalidone 12.5 mg PO DAILY 09/09/22 [History] Cholecalciferol (Vitamin D3) [Vitamin D3] 1 cap PO DAILY 09/09/22 [History] Cyanocobalamin (Vitamin B-12) [Vitamin B12] 1,000 mg PO DAILY 09/09/22 [History] Krill/Om-3/Dha/Epa/Phospho/Ast [Krill Oil 1,000 mg Softgel] 1,085 mg PO BID 09/09/22 [History] Metoprolol Tartrate [Lopressor] 100 tab PO BID 09/09/22 [History] Multivit-Min/Iron/Folic/Lutein [Centrum Silver Women Tablet] 1 tab PO DAILY 09/09/22 [History] Niacin (Inositol Niacinate) [Niacin 500 mg Capsule] 500 mg PO BID 09/09/22 [History] Ubidecarenone [Co Q-10] 1 tab PO DAILY 09/09/22 [History] Apixaban [Eliquis] 5 mg PO DAILY 12/02/22 [History] Pravastatin Sodium 40 mg PO DAILY 12/02/22 [History] Hx Tetanus, Diphtheria Vaccination/Date Given: Yes Hx Influenza Vaccination/Date Given: Yes Hx Pneumococcal Vaccination/Date Given: Yes Travel Risk - Vaccine Status Have you recieved a Covid-19 vaccination: No - Review of Systems Constitutional: No Symptoms Eyes: No Symptoms Ears, Nose, & Throat: No Symptoms Respiratory: No Symptoms Cardiac: Palpitations, No Chest Pain, No Edema, No Syncope, No Orthopnea, No PND Abdominal/Gastrointestinal: No Symptoms Genitourinary Symptoms: No Symptoms Musculoskeletal: No Symptoms Skin: No Symptoms Neurological: No Symptoms Psychological: No Symptoms Endocrine: No Symptoms Hematologic/Lymphatic: No Symptoms Immunological/Allergic: No Symptoms All Other Systems: Reviewed and Negative - Past Medical History Pertinent Past Medical History: Yes Neurological History: No Pertinent History ENT History: No Pertinent History Cardiac History: High Cholesterol, Hypertension, Other Respiratory History: No Pertinent History Endocrine Medical History: No Pertinent History Musculoskeletal History: No Pertinent History GI Medical History: No Pertinent History History: No Pertinent History Psycho-Social History: No Pertinent History Female Reproductive Disorders: No Pertinent History Other Medical History: skin cancer, history of a-fib 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) - Past Surgical History Past Surgical History: Yes Neuro Surgical History: No Pertinent History Cardiac: Cardiac Catheterization Respiratory: No Pertinent History Gastrointestinal: No Pertinent History Female Surgical History: Hysterectomy, Section Other Surgical History: hand surgery, cyst removal from fingers - Social History Smoking Status: Never smoker Exposure to second hand smoke: No Alcohol Use: None Drug Use: none Patient Lives Alone: No () Significant Family History: no pertinent family hx - Nursing Vital Signs Nursing Vital Signs: Initial Vital Signs Temperature 97.6 F 12/02/22 05:27 Pulse Rate 86 12/02/22 05:27 Respiratory Rate 24 12/02/22 05:27 Blood Pressure 110/74 12/02/22 05:27 O2 Sat by Pulse Oximetry 98 12/02/22 05:27 Pain Scale Pain Intensity 0 - Physical Exam General Appearance: no apparent distress Eye Exam: eyes nml inspection Ears, Nose, Throat Exam: normal ENT inspection Neck Exam: normal inspection, full range of motion Respiratory Exam: normal breath sounds, lungs clear, airway intact, No respiratory distress Cardiovascular Exam: regular rate/rhythm, normal heart sounds, capillary refill <2 sec, No edema Gastrointestinal/Abdomen Exam: soft, No tenderness Extremity Exam: normal range of motion Neurologic Exam: alert, oriented x 3, cooperative, normal mood/affect Skin Exam: normal color, warm, dry, No rash SpO2 Interpretation: normal O2 Delivery: Room Air - Course Nursing assessment & vital signs reviewed: Yes EKG Interpreted by Me: RATE (77), Sinus Rhythm, NORMAL AXIS, NORMAL INTERVALS, Other (T wave inversion in multiple inferior and lateral leads similar to EKG on 09/05/22) Ordered Tests: Active Orders 24 hr Category Date Time Status Database Design Analyst STAT Care 12/02/22 05:43 Active EKG-ER Only STAT Care 12/02/22 05:38 Active IV Insertion STAT Care 12/02/22 05:38 Active Pulse Oximetry (ED) STAT Care 12/02/22 05:38 Active CBC W DIFF Stat Lab 12/02/22 06:02 Completed CMP Stat Lab 12/02/22 06:02 Completed D-DIMER QUANTITATIVE Stat Lab 12/02/22 06:02 Completed MAGNESIUM Stat Lab 12/02/22 06:02 Completed TROPONIN Q4H Lab 12/02/22 06:02 Completed TROPONIN Q4H Lab 12/02/22 09:45 Ordered TROPONIN Q4H Lab 12/02/22 13:45 Ordered UA W/RFX UR CULTURE Stat Lab 12/02/22 06:02 Completed Medication Summary Discontinued Medications Generic Name Dose Route Start Last Admin Trade Name Freq PRN Reason Stop Dose Admin Aspirin 324 mg 12/02/22 05:38 12/02/22 05:50 Aspirin 81 Mg Tab.Chew PO 12/02/22 05:39 324 mg STAT ONE Administration Sodium Chloride 1,000 mls @ 999 mls/hr 12/02/22 05:38 12/02/22 05:51 Sodium Chloride 0.9% 1000 Ml IV 12/02/22 06:38 999 mls/hr .Q1H1M STA Administration Sodium Chloride Confirm 12/02/22 05:49 Sodium Chloride 0.9% 1000 Ml Administered 12/02/22 05:50 Dose 1,000 mls @ ud .ROUTE .[facility] Lab/Rad Data: Laboratory Result Diagrams 12/02/22 06:02 12/02/22 06:02 Laboratory Results 12/02/22 12/02/22 12/02/22 Range/Units 06:02 06:02 06:02 WBC (4.0-10.5) x10^3/uL RBC (4.1-5.4) x10^6/uL Hgb (12.0-16.0) g/dL Hct (35-47) % MCV (78-100) fL MCH (26-32) pg MCHC (32-36) g/dL RDW (11.5-14.0) % Plt Count (150-450) x10^3/uL MPV (7.5-11.0) fL Gran % (36.0-66.0) % Immature Gran % (Auto) (0.00-0.4) % Nucleat RBC Rel Count (0.00-0.1) % Eos # (Auto) (0-0.5) x10^3/uL Immature Gran # (Auto) (0.00-0.03) x10^3u/L Absolute Lymphs (auto) (1.0-4.6) x10^3/uL Absolute Monos (auto) (0.0-1.3) x10^3/uL Absolute Nucleated RBC (0.00-0.01) x10^3u/L Lymphocytes % (24.0-44.0) % Monocytes % (0.0-12.0) % Eosinophils % (0.00-5.0) % Basophils % (0.0-0.4) % Absolute Granulocytes (1.4-6.9) x10^3/uL Basophils # (0-0.4) x10^3/uL D-Dimer 0.41 (0.0-0.50) mg/L Sodium (137-145) mmol/L Potassium (3.5-5.1) mmol/L Chloride (98-107) mmol/L Carbon Dioxide (22-30) mmol/L Anion Gap (5-15) MEQ/L BUN (7-17) mg/dL Creatinine (0.52-1.04) mg/dL Estimated GFR ML/MIN Glucose (74-106) mg/dL Calcium (8.4-10.2) mg/dL Magnesium (1.6-2.3) mg/dL Total Bilirubin (0.2-1.3) mg/dL AST (14-36) U/L ALT (0-35) U/L Alkaline Phosphatase (38-126) U/L Troponin I < 0.012 (0.000-0.034) ng/mL Serum Total Protein (6.3-8.2) g/dL Albumin (3.5-5.0) g/dL Urine Color Yellow (Yellow) Urine Appearance Clear (Clear) Urine pH 7.5 (4.6-8.0) Ur Specific [place] 1.010 (1.005-1.030) Urine Protein Negative (Negative) Urine Glucose (UA) Negative (Negative) mg/dL Urine Ketones Negative (Negative) Urine Blood Negative (Negative) Urine Nitrite Negative (Negative) Urine Bilirubin Negative (Negative) Urine Urobilinogen 0.2 (0.2) mg/dL Ur Leukocyte Esterase Negative (Negative) U Hyaline Cast (Auto) NONE SEEN (0-2) /LPF Urine Microscopic RBC 0-2 (0-5) /HPF Urine Microscopic WBC 0-2 (0-5) /HPF Ur Epithelial Cells Rare (None Seen) /HPF Urine Bacteria None Seen (None Seen) /HPF Urine Culture Reflexed NO (NO) 12/02/22 12/02/22 Range/Units 06:02 06:02 WBC 4.6 (4.0-10.5) x10^3/uL RBC 5.26 (4.1-5.4) x10^6/uL Hgb 15.7 (12.0-16.0) g/dL Hct 46.3 (35-47) % MCV 88.0 (78-100) fL MCH 29.8 (26-32) pg MCHC 33.9 (32-36) g/dL RDW 12.6 (11.5-14.0) % Plt Count 199 (150-450) x10^3/uL MPV 11.0 (7.5-11.0) fL Gran % 51.7 (36.0-66.0) % Immature Gran % (Auto) 0.0 (0.00-0.4) % Nucleat RBC Rel Count 0.0 (0.00-0.1) % Eos # (Auto) 0.09 (0-0.5) x10^3/uL Immature Gran # (Auto) 0.00 (0.00-0.03) x10^3u/L Absolute Lymphs (auto) 1.69 (1.0-4.6) x10^3/uL Absolute Monos (auto) 0.40 (0.0-1.3) x10^3/uL Absolute Nucleated RBC 0.00 (0.00-0.01) x10^3u/L Lymphocytes % 36.5 (24.0-44.0) % Monocytes % 8.6 (0.0-12.0) % Eosinophils % 1.9 (0.00-5.0) % Basophils % 1.3 (0.0-0.4) % Absolute Granulocytes 2.39 (1.4-6.9) x10^3/uL Basophils # 0.06 (0-0.4) x10^3/uL D-Dimer (0.0-0.50) mg/L Sodium 142 (137-145) mmol/L Potassium 3.7 (3.5-5.1) mmol/L Chloride 103 (98-107) mmol/L Carbon Dioxide 29 (22-30) mmol/L Anion Gap 13.0 (5-15) MEQ/L BUN 18 H (7-17) mg/dL Creatinine 0.84 (0.52-1.04) mg/dL Estimated GFR > 60.0 ML/MIN Glucose 125 H (74-106) mg/dL Calcium 9.6 (8.4-10.2) mg/dL Magnesium 2.3 (1.6-2.3) mg/dL Total Bilirubin 0.60 (0.2-1.3) mg/dL AST 41 H (14-36) U/L ALT 39 H (0-35) U/L Alkaline Phosphatase 74 (38-126) U/L Troponin I (0.000-0.034) ng/mL Serum Total Protein 7.8 (6.3-8.2) g/dL Albumin 4.7 (3.5-5.0) g/dL Urine Color (Yellow) Urine Appearance (Clear) Urine pH (4.6-8.0) Ur Specific [place] (1.005-1.030) Urine Protein (Negative) Urine Glucose (UA) (Negative) mg/dL Urine Ketones (Negative) Urine Blood (Negative) Urine Nitrite (Negative) Urine Bilirubin (Negative) Urine Urobilinogen (0.2) mg/dL Ur Leukocyte Esterase (Negative) U Hyaline Cast (Auto) (0-2) /LPF Urine Microscopic RBC (0-5) /HPF Urine Microscopic WBC (0-5) /HPF Ur Epithelial Cells (None Seen) /HPF Urine Bacteria (None Seen) /HPF Urine Culture Reflexed (NO) - Progress Progress: unchanged Air Movement: good Progress Note: 12/02/22 06:42 HR 50-80s in ER Stable. Rate controlled. Continue anticoagulation. No changes in management. Troponin neg x 1, CBC wnl, transaminases mildly elevated due to fatty liver, d- dimer neg, Mg wnl, BMP wnl. Patient has appointment w/ scouring pads supervisor on Monday. Patient agreeable for discharge. Blood Culture(s) Obtained: No Antibiotics given: No Counseled pt/family regarding: lab results, diagnosis, need for follow-up Medical Desision Making - Diagnostic Testing Diagnostic test were ordered, analyzed, and reviewed by me: Yes Radiological Interpretation: Interpreted by me - Risk of complications Low Risk: Low risk of morbidity from additional dx testing or treatment - Departure Departure Disposition: Home Clinical Impression: Paroxysmal A-fib Condition: Good Critical Care Time: No Referrals: MELVI ALFONSO [Primary Care Provider] - Follow up/PCP as directed HAMMAD LERNER [CONSULTING PHYSICIAN] - Follow up/PCP as directed Instructions: Atrial Fibrillation (DC)
[2022-12-02] MEDS ORDERED: BABY ASPIRIN 81 MG CHEW PO ONE (05:38)
[2022-12-02] MEDS ORDERED: Sodium Chloride 0.9% 1000 ML 1,000 ML IV STA (05:38)
[2022-12-02] MEDS ORDERED: Sodium Chloride 0.9% 1000 ML 1,000 ML ONE (05:49)
[2022-12-02 06:07] LABS: Absolute Neutrophil Ct (ANC) 2.39 x10^3/uL (1.4-6.9); BASOPHIL % 1.3 % (0.0-0.4); Basophil (Absolute #) 0.06 x10^3/uL (0-0.4); Eosinophil % 1.9 % (0.00-5.0); Eosinophil (Absolute #) 0.09 x10^3/uL (0-0.5); Hematocrit 46.3 % (35-47); Hemoglobin 15.7 g/dL (12.0-16.0); Lymphocyte (Absolute #) 1.69 x10^3/uL (1.0-4.6); Lymphocytes % 36.5 % (24.0-44.0); Mean Corpuscular Hemoglobin 29.8 pg (26-32); Mean Corpuscular Hgb Concent. 33.9 g/dL (32-36); Monocytes % 8.6 % (0.0-12.0); Neutrophil % 51.7 % (36.0-66.0); Platelet Count 199 x10^3/uL (150-450); Red Blood Count 5.26 x10^6/uL (4.1-5.4); Red Cell Distribution Width 12.6 % (11.5-14.0); White Blood Count 4.6 x10^3/uL (4.0-10.5)
[2022-12-02 06:09] VITALS: BP 109/63; PULSE 55; O2SAT 97
[2022-12-02 06:15] LABS: Appearance Clear (Clear); Bacteria None Seen /HPF (None Seen); Bilirubin Negative (Negative); Blood Negative (Negative); Epithelial Cells Rare /HPF (None Seen); Glucose, Urine Negative (Negative); Hyaline Casts NONE SEEN /LPF (0-2); Ketones Negative (Negative); Leukocyte Esterase Negative (Negative); Nitrite Negative (Negative); Ph 7.5 (4.6-8.0); Protein,Urine Dip Negative (Negative); RBC 0-2 /HPF (0-5); Urobilinogen 0.2 mg/dL (0.2); WBC 0-2 /HPF (0-5)
[2022-12-02 06:17] LABS: ADD URINE CULTURE? NO (NO)
[2022-12-02 06:20] LABS: ALBUMIN 4.7 g/dL (3.5-5.0); ALKALINE PHOSPHATASE 74 U/L (38-126); BLOOD UREA NITROGEN 18 mg/dL (7-17); CHLORIDE 103 mmol/L (98-107); Calcium 9.6 mg/dL (8.4-10.2); Carbon Dioxide 29 mmol/L (22-30); Creatinine 1 0.84 mg/dL (0.52-1.04); EST GLOMERULAR FILTRATION RATE > 60.0 ML/MIN; Glucose 125 mg/dL (74-106); MAGNESIUM 2.3 mg/dL (1.6-2.3); Potassium 3.7 mmol/L (3.5-5.1); SGOT/AST 41 U/L (14-36); SGPT/ALT 39 U/L (0-35); SODIUM 142 mmol/L (137-145); Total Protein 7.8 g/dL (6.3-8.2)
[2022-12-02 06:41] LABS: INFLUENZA A NEGATIVE (NEGATIVE); INFLUENZA B NEGATIVE (NEGATIVE); RESPIRATORY SYNCTIAL VIRUS NEGATIVE (NEGATIVE); SARS-CoV-2 Xpert Express NEGATIVE (NEGATIVE)
== END 2022-12-02 06:56 | disposition home or self-care (01) ==
LOC: ED 05:15
DX: I48.0 Paroxysmal atrial fibrillation (principal); E78.5 Hyperlipidemia, unspecified; I10 Essential (primary) hypertension; Z79.01 Long term (current) use of anticoagulants; Z79.899 Other long term (current) drug therapy; Z28.310 Unvaccinated for COVID-19; Z20.828 Contact with and (suspected) exposure to other viral communicable diseases
CPT/HCPCS: 0241U; 36000; 36415; 80053; 81001; 83735; 84484; 85025; 85379; 93005; 93041; 94760; 96360; 99284; A9270-GY

== ENCOUNTER 2023-10-22 03:26 | Observation (INO) | payer MEDICARE, OTHER ==
--- NOTE | 2023-10-22 04:11 | ERPHSYRPT ---
- History of Present Illness Time Seen by Provider: 10/22/23 03:50 Source: patient Exam Limitations: no limitations Physician History: Pt states she has had heart fluttering for the past 2.5 hours; denies chest pain, shortness of air, fever, nausea, vomiting, abdominal pain. Pt states she has had A.fib for the pasty 10 years and has had 6 episodes of this fluttering in the past 10 years. Fluttering is gone now. Allergies/Adverse Reactions: adhesive tape Allergy (Mild, Verified 10/22/23 03:38) Rash Home Medications: Amlodipine Besylate 5 mg [Norvasc 5 mg] 5 mg PO DAILY 09/22/16 [History] Ascorbic Acid 500 mg [Vitamin C 500 MG] 1,000 mg PO BID 09/09/22 [History] Calcium Carb,Cit/D3/Phytostrol [Citracal-D3 Plus Heart [facility] Tb] 1 tab PO DAILY 09/09/22 [History] Cholecalciferol (Vitamin D3) [Vitamin D3] 1 cap PO DAILY 09/09/22 [History] Cyanocobalamin (Vitamin B-12) [Vitamin B12] 1,000 mg PO DAILY 09/09/22 [History] Metoprolol Tartrate [Lopressor] 100 tab PO BID 09/09/22 [History] Multivit-Min/Iron/Folic/Lutein [Centrum Silver Women Tablet] 1 tab PO DAILY 09/09/22 [History] Niacin (Inositol Niacinate) [Niacin 500 mg Capsule] 500 mg PO BID 09/09/22 [History] Apixaban [Eliquis] 5 mg PO BID 12/02/22 [History] Bempedoic Acid/Ezetimibe [Nexlizet 180-10 mg Tablet] 1 tab PO HS 10/22/23 [Histo ry] Olmesartan Medoxomil 40 mg PO DAILY 10/22/23 [History] [place] 3 Fishoil 1 tab PO BID PRN 10/22/23 [History] Potassium Chloride 10 meq PO DAILY 10/22/23 [History] Hx Tetanus, Diphtheria Vaccination/Date Given: Yes Hx Influenza Vaccination/Date Given: Yes Hx Pneumococcal Vaccination/Date Given: Yes Travel Risk - Vaccine Status Have you recieved a Covid-19 vaccination: No - Review of Systems Constitutional: No Fever Ears, Nose, & Throat: No Ear Pain, No Throat Pain Respiratory: No Cough, No Dyspnea Cardiac: No Chest Pain Abdominal/Gastrointestinal: No Abdominal Pain, No Nausea, No Vomiting, No Diarrhea Genitourinary Symptoms: No Dysuria Skin: No Rash Neurological: No Headache - Past Medical History Pertinent Past Medical History: Yes Neurological History: No Pertinent History ENT History: No Pertinent History Cardiac History: High Cholesterol, Hypertension, Other Respiratory History: No Pertinent History Endocrine Medical History: No Pertinent History Musculoskeletal History: No Pertinent History GI Medical History: No Pertinent History History: No Pertinent History Psycho-Social History: No Pertinent History Female Reproductive Disorders: No Pertinent History Other Medical History: skin cancer, 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) - Past Surgical History Past Surgical History: Yes Neuro Surgical History: No Pertinent History Cardiac: Cardiac Catheterization Respiratory: No Pertinent History Gastrointestinal: No Pertinent History Female Surgical History: Hysterectomy, Section Other Surgical History: hand surgery, cyst removal from fingers - Social History Smoking Status: Never smoker Exposure to second hand smoke: No Alcohol Use: None Drug Use: none Patient Lives Alone: No () Significant Family History: no pertinent family hx - Nursing Vital Signs Nursing Vital Signs: Initial Vital Signs Pulse Rate 70 10/22/23 03:39 Respiratory Rate 25 H 10/22/23 03:39 Blood Pressure 187/62 10/22/23 03:39 O2 Sat by Pulse Oximetry 98 10/22/23 03:39 Pain Scale Pain Intensity 0 - Physical Exam General Appearance: alert Eye Exam: PERRL/EOMI Ears, Nose, Throat Exam: TMs normal, pharynx normal, moist mucous membranes Neck Exam: normal inspection Respiratory Exam: normal breath sounds, airway intact Cardiovascular Exam: normal heart sounds Gastrointestinal/Abdomen Exam: soft, normal bowel sounds Extremity Exam: No pedal edema Neurologic Exam: alert, cooperative Skin Exam: warm, dry - Course EKG Interpreted by Me: RATE (71), Sinus Rhythm, Other (QTc = 394; ST depressions in V3 & V4) - Radiology Exams Chest X-ray Interpretation: Interpreted by me, No Pneumonia Ordered Tests: Active Orders 24 hr Category Date Time Status Hardware Supplies Sales Representative STAT Care 10/22/23 04:21 Active EKG-ER Only STAT Care 10/22/23 04:17 Active IV Insertion STAT Care 10/22/23 04:17 Active Pulse Oximetry (ED) STAT Care 10/22/23 04:17 Active CHEST 2 VIEWS (PA AND LAT) Stat Exams 10/22/23 04:20 Taken CBC W DIFF Stat Lab 10/22/23 04:46 Completed CMP Stat Lab 10/22/23 04:46 Completed MAGNESIUM Stat Lab 10/22/23 04:46 Completed TROPONIN Q4H Lab 10/22/23 04:46 Completed TROPONIN Q4H Lab 10/22/23 08:30 Ordered TROPONIN Q4H Lab 10/22/23 12:30 Ordered UA W/RFX UR CULTURE Stat Lab 10/22/23 05:19 Completed Medication Summary Generic Name Dose Route Start Last Admin Trade Name Freq PRN Reason Stop Dose Admin Sodium Chloride 1,000 mls @ 100 mls/hr 10/22/23 04:30 10/22/23 05:15 Sodium Chloride 0.9% 1000 Ml IV 11/21/23 04:29 100 mls/hr .Q10H VIKA Administration Lab/Rad Data: Laboratory Result Diagrams 10/22/23 04:46 10/22/23 04:46 Laboratory Results 10/22/23 10/22/23 10/22/23 Range/Units 05:19 04:46 04:46 WBC (4.0-10.5) x10^3/uL RBC (4.1-5.4) x10^6/uL Hgb (12.0-16.0) g/dL Hct (35-47) % MCV (78-100) fL MCH (26-32) pg MCHC (32-36) g/dL RDW (11.5-14.0) % Plt Count (150-450) x10^3/uL MPV (7.5-11.0) fL Gran % (36.0-66.0) % Immature Gran % (Auto) (0.00-0.4) % Nucleat RBC Rel Count (0.00-0.1) % Eos # (Auto) (0-0.5) x10^3/uL Immature Gran # (Auto) (0.00-0.03) x10^3u/L Absolute Lymphs (auto) (1.0-4.6) x10^3/uL Absolute Monos (auto) (0.0-1.3) x10^3/uL Absolute Nucleated RBC (0.00-0.01) x10^3u/L Lymphocytes % (24.0-44.0) % Monocytes % (0.0-12.0) % Eosinophils % (0.00-5.0) % Basophils % (0.0-0.4) % Absolute Granulocytes (1.4-6.9) x10^3/uL Basophils # (0-0.4) x10^3/uL Sodium 140 (135-145) mmol/L Potassium 4.9 (3.5-5.1) mmol/L Chloride 104 (98-107) mmol/L Carbon Dioxide 27 (22-30) mmol/L Anion Gap 14.1 (5-15) MEQ/L BUN 20 H (7-17) mg/dL Creatinine 0.83 (0.52-1.04) mg/dL Estimated GFR 76.7 ML/MIN Glucose 118 H (74-106) mg/dL Calcium 10.2 (8.4-10.2) mg/dL Magnesium 2.3 (1.6-2.3) mg/dL Total Bilirubin 0.50 (0.2-1.3) mg/dL AST 35 (14-36) U/L ALT 35 (0-35) U/L Alkaline Phosphatase 54 (38-126) U/L Troponin I < 0.012 (0.000-0.034) ng/mL Serum Total Protein 7.5 (6.3-8.2) g/dL Albumin 4.8 (3.5-5.0) g/dL Urine Color Yellow (Yellow) Urine Appearance Clear (Clear) Urine pH 6.5 (4.6-8.0) Ur Specific [place] 1.010 (1.005-1.030) Urine Protein Negative (Negative) Urine Glucose (UA) Negative (Negative) mg/dL Urine Ketones Negative (Negative) Urine Blood Negative (Negative) Urine Nitrite Negative (Negative) Urine Bilirubin Negative (Negative) Urine Urobilinogen 0.2 (0.2) mg/dL Ur Leukocyte Esterase Trace A (Negative) U Hyaline Cast (Auto) NONE SEEN (0-2) /LPF Urine Microscopic RBC 0-2 (0-5) /HPF Urine Microscopic WBC 0-2 (0-5) /HPF Ur Epithelial Cells None Seen (None Seen) /HPF Urine Bacteria None Seen (None Seen) /HPF Urine Culture Reflexed NO (NO) 10/22/23 Range/Units 04:46 WBC 6.2 (4.0-10.5) x10^3/uL RBC 4.66 (4.1-5.4) x10^6/uL Hgb 14.3 (12.0-16.0) g/dL Hct 43.0 (35-47) % MCV 92.3 (78-100) fL MCH 30.7 (26-32) pg MCHC 33.3 (32-36) g/dL RDW 12.4 (11.5-14.0) % Plt Count 220 (150-450) x10^3/uL MPV 10.7 (7.5-11.0) fL Gran % 60.4 (36.0-66.0) % Immature Gran % (Auto) 0.2 (0.00-0.4) % Nucleat RBC Rel Count 0.0 (0.00-0.1) % Eos # (Auto) 0.14 (0-0.5) x10^3/uL Immature Gran # (Auto) 0.01 (0.00-0.03) x10^3u/L Absolute Lymphs (auto) 1.67 (1.0-4.6) x10^3/uL Absolute Monos (auto) 0.55 (0.0-1.3) x10^3/uL Absolute Nucleated RBC 0.00 (0.00-0.01) x10^3u/L Lymphocytes % 27.1 (24.0-44.0) % Monocytes % 8.9 (0.0-12.0) % Eosinophils % 2.3 (0.00-5.0) % Basophils % 1.1 (0.0-0.4) % Absolute Granulocytes 3.73 (1.4-6.9) x10^3/uL Basophils # 0.07 (0-0.4) x10^3/uL Sodium (135-145) mmol/L Potassium (3.5-5.1) mmol/L Chloride (98-107) mmol/L Carbon Dioxide (22-30) mmol/L Anion Gap (5-15) MEQ/L BUN (7-17) mg/dL Creatinine (0.52-1.04) mg/dL Estimated GFR ML/MIN Glucose (74-106) mg/dL Calcium (8.4-10.2) mg/dL Magnesium (1.6-2.3) mg/dL Total Bilirubin (0.2-1.3) mg/dL AST (14-36) U/L ALT (0-35) U/L Alkaline Phosphatase (38-126) U/L Troponin I (0.000-0.034) ng/mL Serum Total Protein (6.3-8.2) g/dL Albumin (3.5-5.0) g/dL Urine Color (Yellow) Urine Appearance (Clear) Urine pH (4.6-8.0) Ur Specific [place] (1.005-1.030) Urine Protein (Negative) Urine Glucose (UA) (Negative) mg/dL Urine Ketones (Negative) Urine Blood (Negative) Urine Nitrite (Negative) Urine Bilirubin (Negative) Urine Urobilinogen (0.2) mg/dL Ur Leukocyte Esterase (Negative) U Hyaline Cast (Auto) (0-2) /LPF Urine Microscopic RBC (0-5) /HPF Urine Microscopic WBC (0-5) /HPF Ur Epithelial Cells (None Seen) /HPF Urine Bacteria (None Seen) /HPF Urine Culture Reflexed (NO) - Progress Progress: unchanged Discussed with : Other (Spoke with & discussed pt with Dr. Vieira([id number]) - obs) Counseled pt/family regarding: lab results, diagnosis, rad results Medical Desision Making - Diagnostic Testing Diagnostic test were ordered, analyzed, and reviewed by me: Yes Radiological Interpretation: Interpreted by me - Departure Departure Disposition: Observation Clinical Impression: Palpitations Condition: Stable Critical Care Time: No Referrals: MELVI ALFONSO [Primary Care Provider] - Follow up/PCP as directed
[2023-10-22 04:48] LABS: Absolute Neutrophil Ct (ANC) 3.73 x10^3/uL (1.4-6.9); BASOPHIL % 1.1 % (0.0-0.4); Basophil (Absolute #) 0.07 x10^3/uL (0-0.4); Eosinophil % 2.3 % (0.00-5.0); Eosinophil (Absolute #) 0.14 x10^3/uL (0-0.5); Hemoglobin 14.3 g/dL (12.0-16.0); IMMATURE GRAN # 0.01 x10^3u/L (0.00-0.03); IMMATURE GRAN % 0.2 % (0.00-0.4); Lymphocyte (Absolute #) 1.67 x10^3/uL (1.0-4.6); Lymphocytes % 27.1 % (24.0-44.0); Mean Cell Volume 92.3 fL (78-100); Mean Corpuscular Hemoglobin 30.7 pg (26-32); Mean Corpuscular Hgb Concent. 33.3 g/dL (32-36); Mean Platelet Volume 10.7 fL (7.5-11.0); Monocyte (Absolute #) 0.55 x10^3/uL (0.0-1.3); Monocytes % 8.9 % (0.0-12.0); Neutrophil % 60.4 % (36.0-66.0); Platelet Count 220 x10^3/uL (150-450); Red Blood Count 4.66 x10^6/uL (4.1-5.4); Red Cell Distribution Width 12.4 % (11.5-14.0); White Blood Count 6.2 x10^3/uL (4.0-10.5)
[2023-10-22 05:02] LABS: ALBUMIN 4.8 g/dL (3.5-5.0); ANION GAP 14.1 MEQ/L (5-15); BILIRUBIN,TOTAL 0.5 mg/dL (0.2-1.3); Calcium 10.2 mg/dL (8.4-10.2); Creatinine 1 0.83 mg/dL (0.52-1.04); EST GLOMERULAR FILTRATION RATE 76.7 ML/MIN; MAGNESIUM 2.3 mg/dL (1.6-2.3); Potassium 4.9 mmol/L (3.5-5.1); Total Protein 7.5 g/dL (6.3-8.2)
[2023-10-22] MEDS: Sodium Chloride 0.9% 1000 ML 1,000 ML IV SCH (05:15)
[2023-10-22 05:33] LABS: ADD URINE CULTURE? NO (NO); Appearance Clear (Clear); Bacteria None Seen /HPF (None Seen); Bilirubin Negative (Negative); Blood Negative (Negative); Epithelial Cells None Seen /HPF (None Seen); Glucose, Urine Negative (Negative); Hyaline Casts NONE SEEN /LPF (0-2); Ketones Negative (Negative); Leukocyte Esterase Trace (Negative); Nitrite Negative (Negative); Ph 6.5 (4.6-8.0); Protein,Urine Dip Negative (Negative); RBC 0-2 /HPF (0-5); Urobilinogen 0.2 mg/dL (0.2); WBC 0-2 /HPF (0-5)
[2023-10-22] MEDS ORDERED: [UNRECOGNIZED DRUG - OTHER] PO SCH (06:00)
[2023-10-22] MEDS ORDERED: TYLENOL 325 MG PO PRN (06:00)
[2023-10-22] MEDS ORDERED: Sodium Chloride 0.9% 1000 ML 1,000 ML IV SCH (06:07)
--- NOTE | 2023-10-22 06:13 | PCM.HP ---
History of Present Illness - Chief Complaint Chief Complaint: Palpitations History of Present Illness: is a 68 year old female with hx of PAF on Eliquis, HTN, and HLP presented to ER tonight with c/o palpitation for the past 2 hours but stopped upon arrival to ER. No chest pain, SOB, syncope, vision change, headache, fever, chills. Essentially her only complaint is palpitation. Has been taking all her home meds and supplements as usual. Work-up in ER largely unremarkable. ER physician saw some mild ST changes as compared to old EKG and wanted her in for observation. Again, pt has no acute complaint at this time - Review of Systems Constitutional: No Symptoms Eyes: No Symptoms Ears, Nose, & Throat: No Symptoms Respiratory: No Symptoms Cardiac: Palpitations Abdominal/Gastrointestinal: No Symptoms Genitourinary Symptoms: No Symptoms Musculoskeletal: No Symptoms Skin: No Symptoms Neurological: No Symptoms Psychological: No Symptoms Endocrine: No Symptoms Hematologic/Lymphatic: No Symptoms Immunological/Allergic: No Symptoms Medications & Allergies Home Medications: Home Medication List Amlodipine Besylate 5 mg [Norvasc 5 mg] 5 mg PO DAILY 09/22/16 [History Confirmed 10/22/23] Ascorbic Acid 500 mg [Vitamin C 500 MG] 1,000 mg PO BID 09/09/22 [History Confirmed 10/22/23] Calcium Carb,Cit/D3/Phytostrol [Citracal-D3 Plus [facility] Tb] 1 tab PO DAILY 09/09/22 [History Confirmed 10/22/23] Cholecalciferol (Vitamin D3) [Vitamin D3] 1 cap PO DAILY 09/09/22 [History Confirmed 10/22/23] Cyanocobalamin (Vitamin B-12) [Vitamin B12] 1,000 mg PO DAILY 09/09/22 [History Confirmed 10/22/23] Metoprolol Tartrate [Lopressor] 100 tab PO BID 09/09/22 [History Confirmed 10/22/23] Multivit-Min/Iron/Folic/Lutein [Centrum Silver Women Tablet] 1 tab PO DAILY 09/09/22 [History Confirmed 10/22/23] Niacin (Inositol Niacinate) [Niacin 500 mg Capsule] 500 mg PO BID 09/09/22 [History Confirmed 10/22/23] Apixaban [Eliquis] 5 mg PO BID 12/02/22 [History Confirmed 10/22/23] Bempedoic Acid/Ezetimibe [Nexlizet 180-10 mg Tablet] 1 tab PO HS 10/22/23 [History Confirmed 10/22/23] Olmesartan Medoxomil 40 mg PO DAILY 10/22/23 [History Confirmed 10/22/23] [place] 3 Fishoil 1 tab PO BID PRN 10/22/23 [History Confirmed 10/22/23] Potassium Chloride 10 meq PO DAILY 10/22/23 [History Confirmed 10/22/23] Allergies/Adverse Reactions: Allergies Allergy/AdvReac Type Severity Reaction Status Date / Time adhesive tape Allergy Mild Rash Verified 10/22/23 03:38 - Past Medical History Past Medical History: Yes Neurological History: No Pertinent History ENT History: No Pertinent History Cardiac History: Arrhythmia, High Cholesterol, Hypertension, Other Respiratory History: No Pertinent History Endocrine Medical History: No Pertinent History Musculoskelatal History: No Pertinent History GI Medical History: No Pertinent History History: No Pertinent History Pyscho-Social History: No Pertinent History Reproductive Disorders: No Pertinent History Comment: skin cancer, history of a-fib episodes (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) - Past Surgical History Past Surgical History: Yes Neuro Surgical History: No Pertinent History Cardiac History: Cardiac Catheterization Respiratory Surgery: No Pertinent History GI Surgical History: No Pertinent History Genitourinary Surgical Hx: No Pertinent History Musculskeletal Surgical Hx: Orthopedic Surgery Female Surgical History: Hysterectomy, Section Other Surgical History: hand surgery, cyst removal from fingers Significant Family History: no pertinent family hx - Social History Smoking Status: Never smoker Exposure to second hand smoke: No Alcohol: None Drug Use: none - Physical Exam Vital Signs: Vital Signs - 24 hr Temp Pulse Pulse Pulse Pulse Resp BP 10/22/23 06:01 56 L 17 125/55 10/22/23 05:46 53 L 16 117/59 10/22/23 05:31 54 L 22 116/61 10/22/23 05:19 58 L 18 129/71 10/22/23 05:18 58 L 18 10/22/23 05:00 63 14 106/58 10/22/23 04:45 65 20 120/68 10/22/23 04:32 69 16 104/70 10/22/23 04:17 10/22/23 04:16 72 20 99/48 10/22/23 04:01 57 L 21 118/58 10/22/23 03:48 64 22 122/58 10/22/23 03:47 98.2 F 80 74 70 72 18 10/22/23 03:45 67 16 203/123 10/22/23 03:39 70 25 H 187/62 BP Pulse Ox 10/22/23 06:01 98 10/22/23 05:46 97 10/22/23 05:31 97 10/22/23 05:19 98 10/22/23 05:18 99 10/22/23 05:00 98 10/22/23 04:45 98 10/22/23 04:32 98 10/22/23 04:17 98 10/22/23 04:16 99 10/22/23 04:01 96 10/22/23 03:48 97 10/22/23 03:47 122/58 95 10/22/23 03:45 95 10/22/23 03:39 98 General Appearance: no apparent distress, alert Neurologic Exam: alert, oriented x 3, cooperative Eye Exam: PERRL/EOMI, eyes nml inspection Ears, Nose, Throat Exam: normal ENT inspection, moist mucous membranes Neck Exam: normal inspection, supple, full range of motion Respiratory Exam: normal breath sounds, lungs clear Cardiovascular Exam: normal heart sounds, irregular Gastrointestinal/Abdomen Exam: soft, normal bowel sounds Pelvic Exam: deferred Rectal Exam: deferred Back Exam: normal inspection Extremity Exam: normal inspection Skin Exam: normal color, dry Results - Labs Lab/Micro Results: Lab Results-Last 24 Hours 10/22/23 10/22/23 10/22/23 Range/Units 04:46 04:46 04:46 WBC 6.2 (4.0-10.5) x10^3/uL RBC 4.66 (4.1-5.4) x10^6/uL Hgb 14.3 (12.0-16.0) g/dL Hct 43.0 (35-47) % MCV 92.3 (78-100) fL MCH 30.7 (26-32) pg MCHC 33.3 (32-36) g/dL RDW 12.4 (11.5-14.0) % Plt Count 220 (150-450) x10^3/uL MPV 10.7 (7.5-11.0) fL Gran % 60.4 (36.0-66.0) % Immature Gran % (Auto) 0.2 (0.00-0.4) % Nucleat RBC Rel Count 0.0 (0.00-0.1) % Eos # (Auto) 0.14 (0-0.5) x10^3/uL Immature Gran # (Auto) 0.01 (0.00-0.03) x10^3u/L Absolute Lymphs (auto) 1.67 (1.0-4.6) x10^3/uL Absolute Monos (auto) 0.55 (0.0-1.3) x10^3/uL Absolute Nucleated RBC 0.00 (0.00-0.01) x10^3u/L Lymphocytes % 27.1 (24.0-44.0) % Monocytes % 8.9 (0.0-12.0) % Eosinophils % 2.3 (0.00-5.0) % Basophils % 1.1 (0.0-0.4) % Absolute Granulocytes 3.73 (1.4-6.9) x10^3/uL Basophils # 0.07 (0-0.4) x10^3/uL Sodium 140 (135-145) mmol/L Potassium 4.9 (3.5-5.1) mmol/L Chloride 104 (98-107) mmol/L Carbon Dioxide 27 (22-30) mmol/L Anion Gap 14.1 (5-15) MEQ/L BUN 20 H (7-17) mg/dL Creatinine 0.83 (0.52-1.04) mg/dL Estimated GFR 76.7 ML/MIN Glucose 118 H (74-106) mg/dL Calcium 10.2 (8.4-10.2) mg/dL Magnesium 2.3 (1.6-2.3) mg/dL Total Bilirubin 0.50 (0.2-1.3) mg/dL AST 35 (14-36) U/L ALT 35 (0-35) U/L Alkaline Phosphatase 54 (38-126) U/L Troponin I < 0.012 (0.000-0.034) ng/mL Serum Total Protein 7.5 (6.3-8.2) g/dL Albumin 4.8 (3.5-5.0) g/dL Urine Color (Yellow) Urine Appearance (Clear) Urine pH (4.6-8.0) Ur Specific [place] (1.005-1.030) Urine Protein (Negative) Urine Glucose (UA) (Negative) mg/dL Urine Ketones (Negative) Urine Blood (Negative) Urine Nitrite (Negative) Urine Bilirubin (Negative) Urine Urobilinogen (0.2) mg/dL Ur Leukocyte Esterase (Negative) U Hyaline Cast (Auto) (0-2) /LPF Urine Microscopic RBC (0-5) /HPF Urine Microscopic WBC (0-5) /HPF Ur Epithelial Cells (None Seen) /HPF Urine Bacteria (None Seen) /HPF Urine Culture Reflexed (NO) 10/22/23 Range/Units 05:19 WBC (4.0-10.5) x10^3/uL RBC (4.1-5.4) x10^6/uL Hgb (12.0-16.0) g/dL Hct (35-47) % MCV (78-100) fL MCH (26-32) pg MCHC (32-36) g/dL RDW (11.5-14.0) % Plt Count (150-450) x10^3/uL MPV (7.5-11.0) fL Gran % (36.0-66.0) % Immature Gran % (Auto) (0.00-0.4) % Nucleat RBC Rel Count (0.00-0.1) % Eos # (Auto) (0-0.5) x10^3/uL Immature Gran # (Auto) (0.00-0.03) x10^3u/L Absolute Lymphs (auto) (1.0-4.6) x10^3/uL Absolute Monos (auto) (0.0-1.3) x10^3/uL Absolute Nucleated RBC (0.00-0.01) x10^3u/L Lymphocytes % (24.0-44.0) % Monocytes % (0.0-12.0) % Eosinophils % (0.00-5.0) % Basophils % (0.0-0.4) % Absolute Granulocytes (1.4-6.9) x10^3/uL Basophils # (0-0.4) x10^3/uL Sodium (135-145) mmol/L Potassium (3.5-5.1) mmol/L Chloride (98-107) mmol/L Carbon Dioxide (22-30) mmol/L Anion Gap (5-15) MEQ/L BUN (7-17) mg/dL Creatinine (0.52-1.04) mg/dL Estimated GFR ML/MIN Glucose (74-106) mg/dL Calcium (8.4-10.2) mg/dL Magnesium (1.6-2.3) mg/dL Total Bilirubin (0.2-1.3) mg/dL AST (14-36) U/L ALT (0-35) U/L Alkaline Phosphatase (38-126) U/L Troponin I (0.000-0.034) ng/mL Serum Total Protein (6.3-8.2) g/dL Albumin (3.5-5.0) g/dL Urine Color Yellow (Yellow) Urine Appearance Clear (Clear) Urine pH 6.5 (4.6-8.0) Ur Specific [place] 1.010 (1.005-1.030) Urine Protein Negative (Negative) Urine Glucose (UA) Negative (Negative) mg/dL Urine Ketones Negative (Negative) Urine Blood Negative (Negative) Urine Nitrite Negative (Negative) Urine Bilirubin Negative (Negative) Urine Urobilinogen 0.2 (0.2) mg/dL Ur Leukocyte Esterase Trace A (Negative) U Hyaline Cast (Auto) NONE SEEN (0-2) /LPF Urine Microscopic RBC 0-2 (0-5) /HPF Urine Microscopic WBC 0-2 (0-5) /HPF Ur Epithelial Cells None Seen (None Seen) /HPF Urine Bacteria None Seen (None Seen) /HPF Urine Culture Reflexed NO (NO) - Radiology Impressions Radiology Exams & Impressions: Radiology Procedures Category Date Time Status CHEST 2 VIEWS (PA AND LAT) Stat Exams 10/22/23 04:20 Taken - Other Procedures and Tests Respiratory Therapy 10/22/23 09:00 EKG REPEAT IN AM Assessment/Plan (1) Palpitations Current Visit: Yes Status: Acute Assessment & Plan: Has hx of PAF, and is on all her current meds. Symptoms resolved upon arrival to ER. Code(s): R00.2 - PALPITATIONS (2) Paroxysmal A-fib Current Visit: No Status: Acute Assessment & Plan: On Eliquis and BB. Continue these. Repeat EKG and trops in AM - per ER physician's concern Code(s): I48.0 - PAROXYSMAL ATRIAL FIBRILLATION (3) Essential (primary) hypertension Current Visit: Yes Status: Acute Assessment & Plan: BP is controlled. Resumed her home meds Code(s): I10 - ESSENTIAL (PRIMARY) HYPERTENSION (4) Hyperlipidemia Current Visit: Yes Status: Acute Assessment & Plan: She takes niacin and lifestyle change to control her cholesterol Code(s): E78.5 - HYPERLIPIDEMIA, UNSPECIFIED Telemedicine Encounter - Telemedicine Encounter Telemedicine Encounter: The entirety of this encounter was performed via Telemedicine" The pt gave me verbal consent to have this telemedicine visit
[2023-10-22 08:02] VITALS: RESP 16; O2SAT 97
--- NOTE | 2023-10-22 08:37 | XRAY ---
Indication: Palpitations/flutter. History atrial fibrillation. Comparison: November 24, 2021 PA/lateral chest demonstrates new minimal right mid lung and stable minimal left base subsegmental atelectasis/scarring. Remaining heart and lungs unremarkable. Bony thorax intact again with osteopenia, mild degenerative changes, and minimal scoliosis. Impression: Nonacute chest with chronic features.
[2023-10-22] MEDS ORDERED: NIACIN 500 MG PO SCH (10:00)
[2023-10-22] MEDS ORDERED: MEDICATION INTERVENTION MC SCH ×3 (10:00)
[2023-10-22] MEDS ORDERED: NON-FORMULARY ITEM (Multivit-Min/Iron/Folic/Lutein [Centrum Silver Women Tablet] 1 EACH Ta PO SCH (10:00)
[2023-10-22] MEDS ORDERED: CALCIUM CARB CIT PO SCH (10:00)
[2023-10-22] MEDS ORDERED: PHYTOSTROL PO SCH (10:00)
[2023-10-22] MEDS ORDERED: NON-FORMULARY ITEM (Apixaban [Eliquis] 5 MG Tablet) PO SCH (10:00)
[2023-10-22] MEDS ORDERED: [UNRECOGNIZED DRUG - OTHER] PO SCH (10:00)
[2023-10-22] MEDS ORDERED: NON-FORMULARY ITEM (Metoprolol Tartrate [Lopressor] 100 MG Tablet) PO SCH (10:00)
[2023-10-22] MEDS ORDERED: OLMESARTAN MEDOXOMIL 40 MG PO SCH (10:00)
[2023-10-22] MEDS ORDERED: NON-FORMULARY ITEM (Cyanocobalamin (Vitamin B-12) [Vitamin B12] 2,500 MCG Tablet) PO SCH (10:00)
[2023-10-22] MEDS ORDERED: D3 PO SCH (10:00)
[2023-10-22] MEDS ORDERED: NON-FORMULARY ITEM (Cholecalciferol (Vitamin D3) [Vitamin D3] 125 MCG Capsule) PO SCH (10:00)
[2023-10-22] MEDS: Klor Con PO SCH (10:33)
[2023-10-22] MEDS: Vitamin B-12 500 MCG PO SCH (10:33)
[2023-10-22] MEDS: ELIQUIS 2.5 MG TABLET PO SCH (10:33)
[2023-10-22] MEDS: Lopressor 50 MG PO SCH (10:33)
[2023-10-22] MEDS: THERAGRAN MULTIVITAMIN PO SCH (10:33)
[2023-10-22] MEDS: VITAMIN D PO SCH (10:33)
[2023-10-22] MEDS: Vitamin C 500 MG PO SCH (10:33)
[2023-10-22] MEDS: NORVASC 5 MG PO SCH (10:34)
[2023-10-22] MEDS: Benicar 20 MG PO SCH (10:34)
[2023-10-22] MEDS: FISH OIL 1,000 MG CAPSULE PO SCH (10:53)
[2023-10-22] MEDS ORDERED: FISH OIL 1,000 MG CAPSULE PO SCH (11:00)
--- NOTE | 2023-10-22 11:09 | PCM.DS ---
Discharge Summary Date of Admission: 10/22/23 06:04 Date of Discharge: 10/22/23 Admitting Physician: OFREST PAULINO DO Primary Care Provider: MELVI ALFONSO Allergies Allergies adhesive tape Allergy (Mild, Verified 10/22/23 03:38) Rash Hospital Summary - Hospital Course Hospital Course: is a 68 year old female with hx of PAF on Eliquis, HTN, and HLP presented to ER 10/22/23 with c/o palpitation for the past 2 hours but stopped upon arrival to ER. No chest pain, SOB, syncope, vision change, headache, fever, chills. Essentially her only complaint is palpitation. Has been taking all her home meds and supplements as usual. Work-up in ER largely unremarkable. ER physician saw some mild ST changes as compared to old EKG. Observation overnight with not continued symptoms. Patient has follow up scheduled with her optometric technician Hammad Lerner this month but will call Monday to see if they would like sooner appointment. Patient is stable and requesting discharge. Will dismiss her with advisement for follow up with cardiology. Discharge Note New Diagnosis: Palpitations New Medications: none Follow Up: Cardiology Latest Assessment & Plan 1) Palpitations Current Visit: Yes Status: Acute Assessment & Plan: Has hx of PAF, and is on all her current meds. Symptoms resolved upon arrival to ER. Code(s): R00.2 - PALPITATIONS (2) Paroxysmal A-fib Current Visit: No Status: Acute Assessment & Plan: On Eliquis and BB. Continue these. Repeat EKG and trops in AM - per ER physician's concern Code(s): I48.0 - PAROXYSMAL ATRIAL FIBRILLATION (3) Essential (primary) hypertension Current Visit: Yes Status: Acute Assessment & Plan: BP is controlled. Resumed her home meds Code(s): I10 - ESSENTIAL (PRIMARY) HYPERTENSION (4) Hyperlipidemia Current Visit: Yes Status: Acute Assessment & Plan: She takes niacin and lifestyle change to control her cholesterol Code(s): E78.5 - HYPERLIPIDEMIA, UNSPECIFIED I spent 35 minutes [id number] with the patient on the day of discharge performing discharge exam, discussing hospital stay and discharge instructions with patient and caregivers, preparation of discharge records, prescriptions & referral forms and addressing any questions/concerns the patient had as documented above. - Vitals & Intake/Output Vital Signs: Vital Signs Temperature 97.1 F 10/22/23 08:00 Pulse Rate 52 L 10/22/23 08:00 Respiratory Rate 16 10/22/23 08:00 Blood Pressure 137/65 10/22/23 08:00 O2 Sat by Pulse Oximetry 97 10/22/23 09:50 Intake & Output: Intake & Output 10/19/23 10/20/23 10/21/23 10/22/23 11:59 11:59 11:59 12:59 Intake Total 120 Balance 120 Weight 90.4 kg - Lab Result Diagrams: 10/22/23 04:46 10/22/23 04:46 Lab Results-Last 24 Hrs: Lab Results-Last 24 Hours 10/22/23 10/22/23 10/22/23 Range/Units 04:46 04:46 04:46 WBC 6.2 (4.0-10.5) x10^3/uL RBC 4.66 (4.1-5.4) x10^6/uL Hgb 14.3 (12.0-16.0) g/dL Hct 43.0 (35-47) % MCV 92.3 (78-100) fL MCH 30.7 (26-32) pg MCHC 33.3 (32-36) g/dL RDW 12.4 (11.5-14.0) % Plt Count 220 (150-450) x10^3/uL MPV 10.7 (7.5-11.0) fL Gran % 60.4 (36.0-66.0) % Immature Gran % (Auto) 0.2 (0.00-0.4) % Nucleat RBC Rel Count 0.0 (0.00-0.1) % Eos # (Auto) 0.14 (0-0.5) x10^3/uL Immature Gran # (Auto) 0.01 (0.00-0.03) x10^3u/L Absolute Lymphs (auto) 1.67 (1.0-4.6) x10^3/uL Absolute Monos (auto) 0.55 (0.0-1.3) x10^3/uL Absolute Nucleated RBC 0.00 (0.00-0.01) x10^3u/L Lymphocytes % 27.1 (24.0-44.0) % Monocytes % 8.9 (0.0-12.0) % Eosinophils % 2.3 (0.00-5.0) % Basophils % 1.1 (0.0-0.4) % Absolute Granulocytes 3.73 (1.4-6.9) x10^3/uL Basophils # 0.07 (0-0.4) x10^3/uL Sodium 140 (135-145) mmol/L Potassium 4.9 (3.5-5.1) mmol/L Chloride 104 (98-107) mmol/L Carbon Dioxide 27 (22-30) mmol/L Anion Gap 14.1 (5-15) MEQ/L BUN 20 H (7-17) mg/dL Creatinine 0.83 (0.52-1.04) mg/dL Estimated GFR 76.7 ML/MIN Glucose 118 H (74-106) mg/dL Calcium 10.2 (8.4-10.2) mg/dL Magnesium 2.3 (1.6-2.3) mg/dL Total Bilirubin 0.50 (0.2-1.3) mg/dL AST 35 (14-36) U/L ALT 35 (0-35) U/L Alkaline Phosphatase 54 (38-126) U/L Troponin I < 0.012 (0.000-0.034) ng/mL Serum Total Protein 7.5 (6.3-8.2) g/dL Albumin 4.8 (3.5-5.0) g/dL Urine Color (Yellow) Urine Appearance (Clear) Urine pH (4.6-8.0) Ur Specific [place] (1.005-1.030) Urine Protein (Negative) Urine Glucose (UA) (Negative) mg/dL Urine Ketones (Negative) Urine Blood (Negative) Urine Nitrite (Negative) Urine Bilirubin (Negative) Urine Urobilinogen (0.2) mg/dL Ur Leukocyte Esterase (Negative) U Hyaline Cast (Auto) (0-2) /LPF Urine Microscopic RBC (0-5) /HPF Urine Microscopic WBC (0-5) /HPF Ur Epithelial Cells (None Seen) /HPF Urine Bacteria (None Seen) /HPF Urine Culture Reflexed (NO) 10/22/23 10/22/23 Range/Units 05:19 08:32 WBC (4.0-10.5) x10^3/uL RBC (4.1-5.4) x10^6/uL Hgb (12.0-16.0) g/dL Hct (35-47) % MCV (78-100) fL MCH (26-32) pg MCHC (32-36) g/dL RDW (11.5-14.0) % Plt Count (150-450) x10^3/uL MPV (7.5-11.0) fL Gran % (36.0-66.0) % Immature Gran % (Auto) (0.00-0.4) % Nucleat RBC Rel Count (0.00-0.1) % Eos # (Auto) (0-0.5) x10^3/uL Immature Gran # (Auto) (0.00-0.03) x10^3u/L Absolute Lymphs (auto) (1.0-4.6) x10^3/uL Absolute Monos (auto) (0.0-1.3) x10^3/uL Absolute Nucleated RBC (0.00-0.01) x10^3u/L Lymphocytes % (24.0-44.0) % Monocytes % (0.0-12.0) % Eosinophils % (0.00-5.0) % Basophils % (0.0-0.4) % Absolute Granulocytes (1.4-6.9) x10^3/uL Basophils # (0-0.4) x10^3/uL Sodium (135-145) mmol/L Potassium (3.5-5.1) mmol/L Chloride (98-107) mmol/L Carbon Dioxide (22-30) mmol/L Anion Gap (5-15) MEQ/L BUN (7-17) mg/dL Creatinine (0.52-1.04) mg/dL Estimated GFR ML/MIN Glucose (74-106) mg/dL Calcium (8.4-10.2) mg/dL Magnesium (1.6-2.3) mg/dL Total Bilirubin (0.2-1.3) mg/dL AST (14-36) U/L ALT (0-35) U/L Alkaline Phosphatase (38-126) U/L Troponin I < 0.012 (0.000-0.034) ng/mL Serum Total Protein (6.3-8.2) g/dL Albumin (3.5-5.0) g/dL Urine Color Yellow (Yellow) Urine Appearance Clear (Clear) Urine pH 6.5 (4.6-8.0) Ur Specific [place] 1.010 (1.005-1.030) Urine Protein Negative (Negative) Urine Glucose (UA) Negative (Negative) mg/dL Urine Ketones Negative (Negative) Urine Blood Negative (Negative) Urine Nitrite Negative (Negative) Urine Bilirubin Negative (Negative) Urine Urobilinogen 0.2 (0.2) mg/dL Ur Leukocyte Esterase Trace A (Negative) U Hyaline Cast (Auto) NONE SEEN (0-2) /LPF Urine Microscopic RBC 0-2 (0-5) /HPF Urine Microscopic WBC 0-2 (0-5) /HPF Ur Epithelial Cells None Seen (None Seen) /HPF Urine Bacteria None Seen (None Seen) /HPF Urine Culture Reflexed NO (NO) - Radiology Exams Ordered Rad Exams-Entire Visit: Radiology Procedures Category Date Time Status CHEST 2 VIEWS (PA AND LAT) Stat Exams 10/22/23 04:20 Completed - Procedures and Test Procedures and Tests throughout Hospitalization: Therapy Orders & Screens 10/22/23 09:00 EKG REPEAT IN AM Comment: Discharge Exam General Appearance: no apparent distress Neurologic Exam: alert, oriented x 3, cooperative Eye Exam: PERRL Ears, Nose, Throat Exam: normal ENT inspection Neck Exam: normal inspection Respiratory Exam: normal breath sounds, lungs clear Cardiovascular Exam: normal heart sounds, bradycardia Gastrointestinal/Abdomen Exam: soft, normal bowel sounds Pelvic Exam: deferred Rectal Exam: deferred Back Exam: normal inspection Extremity Exam: normal inspection Skin Exam: normal color - Discharge Disposition: Home, Self-Care Condition: Stable Prescriptions: Continue Amlodipine Besylate 5 mg [Norvasc 5 mg] 5 mg PO DAILY Cyanocobalamin (Vitamin B-12) [Vitamin B12] 1,000 mg PO DAILY Multivit-Min/Iron/Folic/Lutein [Centrum Silver Women Tablet] 1 tab PO DAILY Calcium Carb,Cit/D3/Phytostrol [Citracal-D3 Plus [facility] Tb] 1 tab PO DAILY Niacin (Inositol Niacinate) [Niacin 500 mg Capsule] 500 mg PO BID Ascorbic Acid 500 mg [Vitamin C 500 MG] 1,000 mg PO BID Metoprolol Tartrate [Lopressor] 100 tab PO BID Cholecalciferol (Vitamin D3) [Vitamin D3] 1 cap PO DAILY Apixaban [Eliquis] 5 mg PO BID Bempedoic Acid/Ezetimibe [Nexlizet 180-10 mg Tablet] 1 tab PO HS Potassium Chloride 10 meq PO DAILY Olmesartan Medoxomil 40 mg PO DAILY [place] 3 Fishoil 1 tab PO BID Follow up with: MELVI ALFONSO [Primary Care Provider] - HAMMAD LERNER [CONSULTING PHYSICIAN] - (call Monday for appt)
[2023-10-22 13:38] VITALS: BP 140/64; PULSE 53; TEMP 97.3
[2023-10-22] MEDS ORDERED: EZETIMIBE PO SCH (22:00)
[2023-10-22] MEDS ORDERED: BEMPEDOIC ACID PO SCH (22:00)
== END 2023-10-22 12:17 | disposition home or self-care (01) ==
LOC: ED 03:26 → MED SURG 06:04
PROVIDERS: ADMIT Internal Medicine; ATTEND Internal Medicine
DX: R00.2 Palpitations (principal); I48.0 Paroxysmal atrial fibrillation; I10 Essential (primary) hypertension; E78.5 Hyperlipidemia, unspecified; Z79.01 Long term (current) use of anticoagulants; Z79.899 Other long term (current) drug therapy; Z20.828 Contact with and (suspected) exposure to other viral communicable diseases; Z85.828 Personal history of other malignant neoplasm of skin
CPT/HCPCS: 36000; 36415; 71046; 80053; 81001; 83735; 84484; 85025; 93005; 93041; 94760; 94762; 99285; A9270-GY

== ENCOUNTER 2024-08-24 10:54 | Emergency (ER) | payer MEDICARE ==
[2024-08-24 11:28] VITALS: RESP 20; TEMP 97.8; O2SAT 96
--- NOTE | 2024-08-24 11:52 | ERPHSYRPT ---
- History of Present Illness Time Seen by Provider: 08/24/24 11:40 Source: patient Exam Limitations: no limitations Patient Subjective Stated Complaint: Wrist injury Triage Nursing Assessment: Patient ambulated back to ED and transferred self to bed. Patient A+O X 3. Patient's skin pink, warm and dry. Patient states last night she fell on the snow landing on her left wrist. Patient complains of pain to left wrist 12/21. Left wrist noted to be swollen. Physician History: 69yo f presents for left wrist pain. Pt reports she had a mechanical fall on some ice on 08/23, states she fell backwards onto her outstretched hand. Pt reports continued pain in the distal forearm and wrist, denies any loss of sensation or weakness in the hand. Pt denies any LOC, did not hit her head. Pt reports some swelling in the forearm but has no other concerns, wants to make sure she doesnt have a fx. Occurred: yesterday Method of Injury: fell Quality: aching Severity of Pain-Max: moderate Severity of Pain-Current: moderate Extremities Pain Location: forearm: left, wrist: left Modifying Factors: Improves With: nothing Associated Symptoms: none Allergies/Adverse Reactions: adhesive tape Allergy (Mild, Verified 08/24/24 11:24) Rash Home Medications: Amlodipine Besylate 5 mg [Norvasc 5 mg] 5 mg PO DAILY 09/22/16 [History] Ascorbic Acid 500 mg [Vitamin C 500 MG] 1,000 mg PO BID 09/09/22 [History] Calcium Carb,Cit/D3/Phytostrol [Citracal-D3 Plus [facility] Tb] 1 tab PO DAILY 09/09/22 [History] Cholecalciferol (Vitamin D3) [Vitamin D3] 1 cap PO DAILY 09/09/22 [History] Cyanocobalamin (Vitamin B-12) [Vitamin B12] 1,000 mg PO DAILY 09/09/22 [History] Metoprolol Tartrate [Lopressor] 100 tab PO BID 09/09/22 [History] Multivit-Min/Iron/Folic/Lutein [Centrum Silver Women Tablet] 1 tab PO DAILY 09/09/22 [History] Niacin (Inositol Niacinate) [Niacin 500 mg Capsule] 500 mg PO BID 09/09/22 [History] Apixaban [Eliquis] 5 mg PO BID 12/02/22 [History] Bempedoic Acid/Ezetimibe [Nexlizet 180-10 mg Tablet] 1 tab PO HS 10/22/23 [History] Olmesartan Medoxomil 40 mg PO DAILY 10/22/23 [History] [place] 3 Fishoil 1 tab PO BID 10/22/23 [History] Potassium Chloride 10 meq PO DAILY 10/22/23 [History] Hx Tetanus, Diphtheria Vaccination/Date Given: Yes Hx Influenza Vaccination/Date Given: No Hx Pneumococcal Vaccination/Date Given: Yes Immunizations Up to Date: Yes Travel Risk - International Travel Have you traveled outside of the country in past 3 weeks: No - Emerging Infectious Disease Are you exhibiting symptoms associated with any current EIDs: No - Review of Systems Constitutional: No Symptoms Respiratory: No Symptoms Cardiac: No Symptoms Abdominal/Gastrointestinal: No Symptoms Musculoskeletal: Fall, Injury, Joint Pain, No Deformity, No Joint Redness, No Joint Swelling Skin: No Symptoms - Past Medical History Pertinent Past Medical History: Yes Neurological History: No Pertinent History ENT History: No Pertinent History Cardiac History: Arrhythmia, High Cholesterol, Hypertension, Other Respiratory History: No Pertinent History Endocrine Medical History: No Pertinent History Musculoskeletal History: No Pertinent History, Arthritis GI Medical History: No Pertinent History History: No Pertinent History Psycho-Social History: No Pertinent History Female Reproductive Disorders: No Pertinent History Other Medical History: skin cancer, history of a-fib episodes since 2015 per pt (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) - Past Surgical History Past Surgical History: Yes Neuro Surgical History: No Pertinent History Cardiac: Cardiac Catheterization Respiratory: No Pertinent History Gastrointestinal: No Pertinent History Genitourinary: No Pertinent History Musculoskeletal: Orthopedic Surgery Female Surgical History: Hysterectomy, Section Other Surgical History: hand surgery, cyst removal from fingers Significant Family History: no pertinent family hx - Social History Smoking Status: Never smoker Exposure to second hand smoke: No Alcohol Use: None Drug Use: none Patient Lives Alone: No () - Social Determinants of Health Will the patient participate in the screening: Yes Do you worry about a steady place to live?: No Do you have any problems with any of the following?: No known problems In the past 12 months,have you had to go without utilities?: No Transportation Issues: No Has anyone in your support network made you feel unsafe?: No Have you or anyone in your house had to go without enough: No - Nursing Vital Signs Nursing Vital Signs: Initial Vital Signs Temperature 97.8 F 08/24/24 11:24 Pulse Rate 69 08/24/24 11:24 Respiratory Rate 20 08/24/24 11:24 Blood Pressure 137/67 08/24/24 11:24 O2 Sat by Pulse Oximetry 96 08/24/24 11:24 Pain Scale Pain Intensity 5 - Physical Exam General Appearance: no apparent distress, alert Cardiovascular/Respiratory Exam: chest non-tender, heart sounds normal, no respiratory distress Shoulder Exam: normal inspection, non-tender, no evidence of injury, normal ROM Elbow/Forearm Exam: normal inspection, non-tender, no evidence of injury, normal ROM Wrist Exam: limited ROM (limited in extension 2/2 pain, ), pain (minimal TTP over wrist medial worse than lateral), swelling (minimal swelling of distal forearm), No asymmetry, No deformity, No ecchymosis Hand Exam: normal inspection, non-tender, no evidence of injury, normal ROM Neuro/Tendon Exam: normal sensation, normal motor functions, normal tendon functions Mental Status Exam: alert, oriented x 3, cooperative Skin Exam: normal color SpO2 Interpretation: normal SpO2: 96 O2 Delivery: Room Air Ordered Tests: Active Orders 24 hr Category Date Time Status WRIST (MIN 3 VIEWS) Stat Exams 08/24/24 11:23 Completed - Progress Progress Note: 08/24/24 13:49 left wrist xray showed: FINDINGS: There is a in complete sclerotic line at the distal end of the radius and proximal shaft of the 2nd metacarpal raising the concern for compressed fracture Ab normal configuration of the trapezieum and trapiezoid denoting degnerative chnages Marked first carpometacarpal joint degenerative changes. Joints spaces are reduced with degenerative changes and osteophytes No soft tissue swelling seen around the joints. IMPRESSION: 1. In complete sclerotic line at the distal end of the radius and proximal shaft of the 2nd metacarpal raises the concern for compressed fracture. Requires follow up left wrist metal splint applied to anterior wrist w/ eliseo wrap plan for discharge home w/ follow up w/ orthopedics at [facility] on 06/26/25 recommend wearing splint while up moving around and while sleeping recommend tylenol/ibuprofen for discomfort, ice for swelling return to ED if: develop loss of sensation in the left hand/fingers, left hand/fingers become discolored, left hand/fingers become exceptionally cool to touch Medical Desision Making - Diagnostic Testing Diagnostic test were ordered, analyzed, and reviewed by me: Yes Radiological Interpretation: Reviewed by me, Teleradiologist Report - Risk of complications Minimal Risk: Minimal risk of morbidity - Departure Departure Disposition: Home Clinical Impression: Left wrist fracture Qualifiers: Encounter type: initial encounter Fracture type: closed Qualified Code(s): S62.102A - Fracture of unspecified carpal bone, left wrist, initial encounter for closed fracture Condition: Stable Critical Care Time: No Referrals: MELVI ALFONSO [Primary Care Provider] - Follow up/PCP as directed Additional Instructions: left wrist metal splint applied to anterior wrist w/ eliseo wrap plan for discharge home w/ follow up w/ orthopedics at [facility] on 06/26/25 recommend wearing splint while up moving around and while sleeping recommend tylenol/ibuprofen for discomfort, ice for swelling return to ED if: develop loss of sensation in the left hand/fingers, left hand/fingers become discolored, left hand/fingers become exceptionally cool to touch
--- NOTE | 2024-08-24 13:38 | XRAY ---
CLINICAL HISTORY: pain/fall COMPARISON: None. TECHNIQUE: AP, oblique, and lateral projections of the left wrist are submitted. FINDINGS: There is a in complete sclerotic line at the distal end of the radius and proximal shaft of the 2nd metacarpal raising the concern for compressed fracture Ab normal configuration of the trapezieum and trapiezoid denoting degnerative chnages Marked first carpometacarpal joint degenerative changes. Joints spaces are reduced with degenerative changes and osteophytes No soft tissue swelling seen around the joints. IMPRESSION: 1. In complete sclerotic line at the distal end of the radius and proximal shaft of the 2nd metacarpal raises the concern for compressed fracture. Requires follow up 2. Rest described above. Disclaimer: A subtle bone abnormality or fracture may not be readily apparent on x-rays, thus clinical correlation and further imaging including follow up CT, MRI, or follow up x-rays are advised as needed. Electronically Signed by: Toño Nicole MD. (08/24/2024 13:33:45 EST)
[2024-08-24 13:52] VITALS: BP 111/70; PULSE 68
== END 2024-08-24 14:03 | disposition home or self-care (01) ==
LOC: ED 10:54
DX: S62.102A Fracture of unspecified carpal bone, left wrist, initial encounter for closed fracture (principal); W00.0XXA Fall on same level due to ice and snow, initial encounter; E78.5 Hyperlipidemia, unspecified; I10 Essential (primary) hypertension; Z79.01 Long term (current) use of anticoagulants; Z79.899 Other long term (current) drug therapy
CPT/HCPCS: 73110; 99282; 99283; A4570